=== PATIENT | female | born 1950 | race African-American/Black ===

== ENCOUNTER 2023-06-13 13:52 | Outpatient (CLI) | payer MEDICARE, SELFPAY ==
[2023-06-13 15:09] LABS: Basophils Percent Auto 0.6 % (0.2-1.2); Eosinophils Absolute Auto 0.3 K/mm3 (0-0.3); Eosinophils Percent Auto 4.3 % (0-4.4); Hematocrit 37.6 % (37.0-47.0); Hemoglobin 11.1 g/dL (12.0-15.0); Immature Granulocyte Absolute 0.01 K/mm3 (0.00-0.031); Immature Granulocyte Percent A 0.1 % (0-0.5); Lymphocytes Absolute Auto 2.27 K/mm3 (0.9-3.2); Mean Corpuscular HGB Conc 29.5 g/dl (32-36); Mean Corpuscular Hemoglobin 22.9 pg (26-34); Mean Corpuscular Volume 77.5 fl (80-100); Mean Platelet Volume 10.7 fl (7.4-10.4); Monocytes Absolute Auto 0.5 K/mm3 (0.1-0.6); Monocytes Percent Auto 7.3 % (2.6-8.5); Neutrophils Absolute Auto 3.6 K/mm3 (1.3-6.7); Neutrophils Percent Auto 53.7 % (45.5-73.1); Platelet Count Result 309 k/mm3 (150-375); Red Blood Count 4.85 M/mm3 (4.2-5.4); Red Cell Distribution Width 14.3 % (11.5-14.5); White Blood Count 6.7 K/mm3 (4.5-10.0)
[2023-06-13 15:25] LABS: Appearance Urine Cloudy (Clear); Bacteria Urine Rare /hpf; Bilirubin Urine Negative (Negative); Blood Urine Negative (Negative); Color Urine Yellow (Yellow); Glucose Urine UA Negative (Negative); Ketones Urine Negative (Negative); Leukocyte Esterase Ur 1+ LEU/UL (Negative); Nitrate Urine Negative (Negative); Non Pathogenic Casts 0-2; Protein Urine Negative (Negative); RBC Urine 0-2 /hpf (0-2); Specific Grav Ur 1.029 (1.001-1.035); Squamous Epithelial Cell Urine Occasional /hpf (Few); pH Urine 5.5 (5.0-9.0)
[2023-06-13 15:25] LABS: Albumin Level 4.4 g/dL (3.5-5.1); Anion Gap 6 mmol/L (8-16); Blood Urea Nitrogen 19 mg/dL (7-17); Calcium 10.4 mg/dL (8.4-10.2); Carbon Dioxide 31 mmol/L (22-30); Chloride 102 mmol/L (98-107); Estimated Glomerular Filt Rate > 60; Glucose 100 mg/dL (65-110); Sodium 139 mmol/L (137-145)
[2023-06-13 15:28] LABS: Prothrombin Time 13.4 Seconds (11.1-14.7)
[2023-06-13 15:29] LABS: Partial Thromboplastin Time 29.1 SECONDS (22.3-36.8)
[2023-06-13 15:32] LABS: Add Urine Microscopic? YES
[2023-06-13 15:41] LABS: Platelet Estimate Adequate (Adequate)
[2023-06-13 15:42] LABS: Hypochromasia 1+ (NORMAL); Ovalocytes 2+ (NORMAL); Schistocytes None Seen (NORMAL)
[2023-06-13 15:49] LABS: Urine Cotinine NEGATIVE
== END 2023-06-13 13:53 | disposition home or self-care (01) ==
PROVIDERS: PCP Physician Assistant; Visit Provider Orthopaedic Surgery
DX: Z01.818 Encounter for other preprocedural examination (principal); I10 Essential (primary) hypertension; M17.0 Bilateral primary osteoarthritis of knee
CPT/HCPCS: 80048; 80307; 81001; 82040; 85025; 85610; 85730; 87081; 87086

== ENCOUNTER 2023-06-27 00:25 | Day surgery (SDC) | payer MEDICARE, SELFPAY ==
[2023-06-13 14:08] VITALS: BMI 37.8
--- NOTE | 2023-06-13 14:25 | PC.NURSE ---
Addendum entered by Selam Olmos RN 06/13/23 14:30: MELOXICAM PER DR GUEVARA Original Note: Report to the Outpatient Waiting Room, entrance under the green pavilion located off [facility], at time __0600 on date __06/27/23 . Planned Procedure Time: _0730 . Time changes happen often and if your time is changed the preop area will call you the afternoon before. - You and your visitor will be asked to self-screen and do not enter if you have any COVID symptoms. - A mask is optional within the hospital at this time. Patients may have clear liquids (water, carbonated beverages, clear teas, apple juice) until 3 hours prior to surgery( 4:30 AM ) with a maximum of 20 ounces. - No food from midnight until time of surgery - Infants may have breast milk until 4 hours before surgery, infant formula 6 hours prior to surgery. - Children will be allowed to drink immediately following surgery. If applicable, please bring a bottle or sippy cup to assist with drinking. Juice, water, soda, and popsicles are readily available. For infants on formula, please bring formula the day of surgery. Pacifiers are allowed. Take the following medications with a SIP of water the morning of surgery: NONE DO NOT STOP ANY OF YOUR OTHER PRESCRIPTION MEDICATIONS PRIOR TO SURGERY ?EXCEPT THE FOLLOWING Medications to discontinue per physician ___ALL VITAMINS AND SUPPLEMENTS 3 DAYS PRE OP.LAST DOSE 06/23/23 Please no make-up, nail afghan, hairspray, perfume, deodorant, or body powder the day of surgery. No jewelry (including any body piercings) or valuables the day of surgery, leave them at home. Please take a shower or bath the night before, or the morning of, surgery with an antibacterial soap. Wear comfortable, loose fitting clothing. Children are encouraged to wear pajamas. - Jewelry must be removed prior to entering the operating room. Rings and piercings that are not removed may be cut off. - The hospital will not accept responsibility for valuables. - Please leave all valuables, including medications, at home the day of surgery. If you are going home after surgery, a licensed local combination truck driver must drive you home. - NO public transportation without another adult if you receive anesthesia. - We recommend that an adult stay with you for 24 hours following discharge. - We also recommend that you do not drive, make important decision, drink alcoholic beverages, or take any drugs that were not prescribed by your health care provider for at least 24 hours after your discharge time. Follow any additional instructions given to you from your surgeon. If you or anyone in your household have experienced Covid symptoms in the past week, please notify your surgeon or the nurse liaison at the phone number below for possible testing. VERBAL AND WRITTEN instructions given to ___PATIENT and asked if any additional questions and then verbalized understanding. Patient advised to call surgeon office or pre surgery nurse liaison [phone] if any additional questions.
[2023-06-13 14:47] VITALS: BP 113/72; PULSE 73; RESP 18; TEMP 36.6; O2SAT 97
[2023-06-27] VITALS (16 sets, daily range): BP systolic 123–167; BP diastolic 61–92; PULSE 69–98; RESP 13–18; TEMP 35.9–37.4; O2SAT 93–100
--- NOTE | ~2023-06-27 | XR_ITS ---
EXAMINATION: [id number] DATE: 06/27/2023 10:16 INDICATION: Left knee arthroplasty. Postop. TECHNIQUE: 2 views of left knee were obtained. COMPARISON: Left knee radiographs 12/22/22 FINDINGS: There is a total left knee arthroplasty without patellar resurfacing in near-anatomic align ment. No fracture. There is gas in the knee joint and soft tissues, consistent with recent surgery. A nterior skin noemi are noted. IMPRESSION: 1. Total left knee arthroplasty in near-anatomic alignment. Reviewed, dictated and finalized at location A. MATION DEVELOPER
[2023-06-27] MEDS: ACETAMINOPHEN 500 MG TABLET 1000 MG PO (06:40)
--- NOTE | 2023-06-27 06:45 | WPDANESEPPF ---
Anes - Initial Pre Proc Eval Procedure: Operation Date: 06/27/23 07:30 Proposed Procedures p Left Total Knee Arthroplasty - Joe Hughes MD Date/Time: 06/27/23 06:45 Surgeon: Joe Hughes MD Pre Op Diagnosis: left knee djd Patient Data Age: 73 Gender: F Height: 1.55 m Weight: 90.8 kg Last Vital Signs Temp 36.6 C 06/13/23 14:47 Pulse 73 06/13/23 14:47 Resp 18 06/13/23 14:47 BP 113/72 06/13/23 14:47 Pulse Ox 97 06/13/23 14:47 O2 Del Method Room Air 06/13/23 14:47 Allergies Allergy/AdvReac Type Severity Reaction Status Date / Time No Known Allergies Allergy Verified 06/27/23 06:31 Home Medications Medication Instructions Recorded Confirmed Type biotin 10,000 mcg disintegrating 10,000 mcg PO DAILY 12/26/22 06/13/23 History tablet simvastatin 40 mg tablet 40 mg PO DAILY 12/26/22 06/13/23 History cyanocobalamin (vitamin B-12) 2,500 mcg PO DAILY 06/13/23 06/13/23 History 2,500 mcg tablet ergocalciferol (vitamin D2) 1,250 50,000 unit PO WEEKLY 06/13/23 06/13/23 History mcg (50,000 unit) capsule (Vitamin D2) meloxicam 15 mg tablet 15 mg PO PRN PRN Pain 06/13/23 06/13/23 History telmisartan 80 1 tablet PO DAILY 06/13/23 06/13/23 History mg-hydrochlorothiazide 25 mg tablet chlorhexidine gluconate 4 % 1 applic topical ONCE #237 mL 06/14/23 Rx topical liquid (Hibiclens) Patient hx anesthesia problems: none Family hx anesthesia problems: none Results Review: All pre-operative results and documents have been reviewed as part of the pre-operative evaluation. 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 Informed Consent: The patient's anesthetic plan and its attendant risks and benefits were discussed with the patient/family/POA. Questions were solicited and answers provided to the satisfaction of the patient/family/POA.
[2023-06-27] MEDS: LACTATED RINGERS 1,000 ML 30 ML IV CONT ×2 (07:12→10:01)
[2023-06-27] MEDS: TRANEXAMIC ACID 1,000MG/ISO100 1,000 MG/100 ML BAG 200 MG IVPB (07:12)
--- NOTE | 2023-06-27 07:16 | WPDHPUPDATE1 ---
History and Physical Update Update Date/Time: 06/27/23 07:16 History and Physical has been reviewed, including an updated exam of the patient. There are NO changes in the patient's condition. Risks, benefits, and alternatives have been discussed and questions answered. Patient agrees to proceed with procedure.
--- NOTE | 2023-06-27 07:30 | WPDANESPNB ---
Anes - Peripheral Nerve Block Date/Time: 06/27/23 07:30 I have discussed with the patient/family/POA the placement of a peripheral nerve block for post-operative pain management, including associated risks, benefits, complications, and side effects. Alternative methods of post-operative analgesia were detailed. Questions were solicited and answers provided to the satisfaction of the patient/family/POA. Time-Out: A pre-procedural Time-Out was completed immediately before starting the procedure and confirmed: Patient Identification, Site, Procedure, Patient Position and the Availability of Requisite Equipment. Clinical Indications: Acute post-operative pain management requested by the operative surgeon. Nerve Block Insertion Note Anes-nerve block: adductor canal left Patient position: supine Skin prep: chlorhexidine Needle: 22 gauge, stimulating, insulated echogenic needle. Needle length: 80 mm Technique: ultrasound Injectate: bupivacaine 0.5% with epi 5 mcg/ml (30cc) and dexamethasone (mg) (8) Observations: tolerated well Complications: none Procedure start time:: 721 Procedure end time:: 728
[2023-06-27] MEDS: ceFAZolin 2 GM/D5W 50 ML 2 GM/50 ML BAG IVPB ×2 (07:34→16:10)
[2023-06-27] MEDS: GENTAMICIN BONE CEMENT REFOBACIN 1 EACH TOPICAL (08:44)
[2023-06-27] MEDS: TRANEXAMIC ACID 1,000 MG/10 ML AMPUL 1000 MG IV PUSH (09:13)
--- NOTE | 2023-06-27 10:08 | W.PM.PROC2 ---
Procedure Note - Detailed Date of Procedure 06/27/23 Pre-op Diagnosis left knee djd Post-op Diagnosis Same Procedure Performed L TKA Surgeon Joe Hughes MD Anesthesia General Description of Procedure THE LEFT KNEE WAS PREPPED AND DRAPED IN THE STERILE FASHION. THERE WAS A 10 DEGREE FLEXION CONTRACTURE. A MIDLINE SKIN INCISION WAS MADE. A MEDIAL PARAPATELLAR ARTHROTOMY WAS MADE. THE PATELLA WAS EVERTED. AN INTRAMEDULLARY BEATA WAS PLACED IN THE FEMUR. A DISTAL FEMORAL CUT WAS MADE IN 5 DEGREES OF VALGUS REMOVING APPROXIMATELY 10 MM OF BONE FROM THE DISTAL FEMUR. THE FEMUR WAS SIZED TO 62.5. A 62.5 FEMORAL CUTTING BLOCK WAS PLACED IN 3 DEGREES OF EXTERNAL ROTATION AND IN ALIGNMENT WITH REJI'S LINE AND THE TRANSEPICONDYLAR AXIS. ANTERIOR POSTERIOR AND CHAMFER CUTS WERE MADE. THE CUTS WERE EXCELLENT. NEXT AN INTRAMEDULLARY CUTTING GUIDE WAS PLACED IN THE TIBIA. A TRANS TIBIAL CUT WAS MADE ALONG THE LONG AXIS OF THE TIBIA. APPROXIMATELY 10 MM OF BONE WAS REMOVED FROM THE HIGH SIDE OF THE TIBIA. THE TIBIA WAS THEN PLANED TO A SMOOTH SURFACE. POSTERIOR FEMORAL OSTEOPHYTES WERE REMOVED FROM THE FEMORAL CONDYLES. A 71 TIBIAL TRIAL WAS PLACED IN ALIGNMENT WITH THE 1/3 MEDIAL ASPECT OF THE TIBIAL TUBERCLE. THEN A 62.5 FEMORAL TRIAL COMPONENT WAS PLACED. BOTH HAD EXCELLENT FITS. EVENTUALLY A 10 MM POLYETHYLENE TRIAL COMPONENT WAS PLACED. THE KNEE WAS TAKEN THROUGH A RANGE OF MOTION. THE KNEE CAME OUT TO FULL EXTENSION. THERE WAS NO ABNORMAL TILT TO THE PATELLA. THERE WAS GOOD A/P AND VARUS/VALGUS STABILITY. THERE WAS NO EXCESSIVE ROLL BACK WITH FLEXION. THE TRIAL COMPONENTS WERE REMOVED. THEN A 62.5 FEMORAL COMPONENT AND 71 TIBIAL COMPONENT WITH A 10 POLYETHYLENE COMPONENT WERE CEMENTED INTO PLACE. ONCE THE CEMENT WAS HARD THE KNEE WAS TAKEN THROUGH A ROM AGAIN AND FOUND TO BE STABLE WITH NO PATELLA TILT NO EXCESSIVE ROLL BACK WITH FLEXION AND GOOD STABILITY WITH COMPLETE AND FULL EXTENSION. THE KNEE WAS IRRIGATED WITH STERILE BETADINE AND WATER FOR ABOUT 3 MINUTES. THE BLEEDERS WERE CAUTERIZED. THE ARTHROTOMY WAS REPAIRED WITH NUMBER 1 VICRYL. THE SUB CUTANEOUS LAYER WITH 2-0 VICRYL AND THE SKIN WITH SHRADDHA. THE WOUND WAS WASHED AND A STERILE DRESSING WAS APPLIED. PATIENT WAS EXTUBATED. Estimated Blood Loss -150.0 Pathology None sent Complications No immediate complications Condition Stable Disposition PACU
[2023-06-27] MEDS: fentaNYL CITRATE INJ (*CRX) 100 MCG/2 ML VIAL 25 MCG IV PUSH ×3 (10:36→11:06)
[2023-06-27] MEDS: KETOROLAC 15 MG/ML VIAL (*BKC) IV PUSH (11:03)
--- NOTE | 2023-06-27 11:04 | SUR.PHASEI ---
1100- MD Hughes at bedside. New orders for RN to give 15mg ketorolac IVP once in PACU.
[2023-06-27] MEDS: ONDANSETRON INJ 4 MG/2 ML VIAL IV PUSH ×2 (11:15→14:21)
--- NOTE | 2023-06-27 11:33 | SUR.PHASEI ---
Pt. complaining that dressing is too tight. MD Bell notified. RN can loosen anton wrap dressing per .
--- NOTE | 2023-06-27 11:55 | PC.NURSE ---
This patient, Erma Norris, was admitted to 3 [facility] Surg Room 321-02. Patient/family oriented to hospital policies and general routines including ID bracelet, bed and alarms, visiting hours, pain management, procedures, bathroom and other care routines, personal items, smoking policy, room service/diet, and visiting hours. Report received from Aleta AMOS Information on how to activate the Rapid Response Team has been discussed. Patient/Family are encouraged to report perceived risks to care and to ask questions if they do not understand what they are told or what they should do.
[2023-06-27] MEDS: diazePAM (*CRX) 5 MG TABLET PO (12:15)
[2023-06-27] MEDS: SODIUM CHLORIDE 0.9% IV 1,000 ML 125 ML IV CONT (14:21)
--- NOTE | 2023-06-27 15:09 | PCOTNOTE ---
Attempted to see pt. for occupational therapy evaluation. Pt. remains nauseous and continues to work with PT. Nursing aware. Following.
[2023-06-27] MEDS: oxyCODONE/ACETAMINOPHEN (*CRX) 5-325 MG TABLET 2 TABLET PO (18:03)
[2023-06-27] MEDS: CELECOXIB 200 MG CAPSULE PO (20:48)
[2023-06-27] MEDS: ASPIRIN 325 MG ENTERIC TABLET PO (20:48)
[2023-06-27] MEDS: FAMOTIDINE 20 MG TABLET PO (20:48)
[2023-06-28] MEDS: ceFAZolin 2 GM/D5W 50 ML 2 GM/50 ML BAG IVPB ×2 (00:25→08:49)
[2023-06-28] MEDS: oxyCODONE/ACETAMINOPHEN (*CRX) 5-325 MG TABLET 2 TABLET PO ×2 (00:26→08:58)
[2023-06-28 01:12] VITALS: BP 132/76; PULSE 68; RESP 16; TEMP 35.9; O2SAT 100
[2023-06-28 05:36] VITALS: BP 102/60; PULSE 64; RESP 16; TEMP 36; O2SAT 94
[2023-06-28] MEDS: oxyCODONE/ACETAMINOPHEN (*CRX) 5-325 MG TABLET 1 TABLET PO (05:48)
[2023-06-28 06:35] LABS: Hematocrit 27.7 % (37.0-47.0); Hemoglobin 8.4 g/dL (12.0-15.0); Red Blood Count 3.67 M/mm3 (4.2-5.4); White Blood Count 9.4 K/mm3 (4.5-10.0)
[2023-06-28 06:36] LABS: Basophils Percent Auto 0.2 % (0.2-1.2); Eosinophils Percent Auto 0.1 % (0-4.4); Immature Granulocyte Absolute 0.05 K/mm3 (0.00-0.031); Immature Granulocyte Percent A 0.5 % (0-0.5); Lymphocytes Absolute Auto 1.67 K/mm3 (0.9-3.2); Lymphocytes Percent Auto 17.8 % (18.3-44.2); Mean Corpuscular HGB Conc 30.3 g/dl (32-36); Mean Corpuscular Hemoglobin 22.9 pg (26-34); Mean Corpuscular Volume 75.5 fl (80-100); Mean Platelet Volume 10.4 fl (7.4-10.4); Monocytes Absolute Auto 0.9 K/mm3 (0.1-0.6); Monocytes Percent Auto 9.8 % (2.6-8.5); Neutrophils Absolute Auto 6.7 K/mm3 (1.3-6.7); Neutrophils Percent Auto 71.6 % (45.5-73.1); Platelet Count Result 217 k/mm3 (150-375); Red Cell Distribution Width 13.9 % (11.5-14.5)
[2023-06-28 06:44] LABS: Anion Gap 7 mmol/L (8-16); Blood Urea Nitrogen 17 mg/dL (7-17); Calcium 9.6 mg/dL (8.4-10.2); Carbon Dioxide 27 mmol/L (22-30); Chloride 98 mmol/L (98-107); Estimated CRCL calculation 57 ml/min; Estimated Glomerular Filt Rate > 60; Glucose 123 mg/dL (65-110); Potassium 4.8 mmol/L (3.4-5.0); Sodium 132 mmol/L (137-145)
[2023-06-28 07:06] LABS: Hypochromasia 1+ (NORMAL); Ovalocytes 1+ (NORMAL); Platelet Estimate Adequate (Adequate); Schistocytes Rare (NORMAL)
[2023-06-28 07:08] LABS: Atypical Lymphocytes Present
[2023-06-28] MEDS: hydroCHLOROthiazide 25 MG TABLET PO (08:50)
[2023-06-28] MEDS: SIMVASTATIN 20 MG TABLET 40 MG PO (08:51)
[2023-06-28] MEDS: FAMOTIDINE 20 MG TABLET PO (08:51)
[2023-06-28] MEDS: TELMISARTAN 40 MG TABLET 80 MG PO (08:51)
[2023-06-28] MEDS: CELECOXIB 200 MG CAPSULE PO (08:51)
[2023-06-28] MEDS: SENNA/DOCUSATE SODIUM TABLET 2 TAB PO (08:51)
[2023-06-28] MEDS: polyethylene glycoL 3350 17 GM POWD.PACK PO (08:51)
[2023-06-28] MEDS: ASPIRIN 325 MG ENTERIC TABLET PO (08:51)
[2023-06-28] MEDS: ONDANSETRON INJ 4 MG/2 ML VIAL IV PUSH (08:58)
--- NOTE | 2023-06-28 08:58 | P.PNAN_ITS ---
Anes - Prog Note Post-Op Date/Time: 06/28/23 08:58 Cardiovascular status: normal Respiratory status: normal Airway patency: baseline Mental status: baseline Post-Op hydration status: normal Vital Signs: Last Vital Signs Temp 36.0 C L 06/28/23 05:36 Pulse 64 06/28/23 05:36 Resp 16 06/28/23 05:36 BP 102/60 06/28/23 05:36 Pulse Ox 94 06/28/23 05:36 O2 Del Method Room Air 06/27/23 14:50 O2 Flow Rate 2 06/27/23 11:45 Pain Score (VAS): 08/25 I/O: Intake & Output 06/27/23 06/28/23 06/28/23 23:59 07:59 15:59 Intake Total 410 450 Balance 410 450 Laboratory Tests 06/28/23 06:23 06/28/23 06:24 06/27/23 06/28/23 06/28/23 06:47 06:23 06:24 WBC 9.4 RBC 3.67 L Hgb 8.4 L Hct 27.7 L MCV 75.5 L MCH 22.9 L MCHC 30.3 L RDW 13.9 Plt Count 217 MPV 10.4 Immature Gran % (Auto) 0.5 Neut % (Auto) 71.6 Lymph % (Auto) 17.8 L [place] % (Auto) 9.8 H Eos % (Auto) 0.1 Baso % (Auto) 0.2 Lymph # (Auto) 1.67 [place] # (Auto) 0.9 H Eos # (Auto) 0.0 Baso # (Auto) 0.0 Abs Immat Gran (auto) 0.05 H Absolute Neuts (auto) 6.7 Absolute Nucleated RBC 0.0 Nucleated RBC % 0.0 Atypical Lymphocytes Present Platelet Estimate Adequate Hypochromasia 1+ Ovalocytes 1+ Schistocytes Rare Sodium 132 L Potassium 4.8 Chloride 98 Carbon Dioxide 27 Anion Gap 7 L BUN 17 Creatinine 0.80 Estim Creat Clear Calc 57 Estimated GFR > 60 Glucose 123 H Calcium 9.6 Antibody Screen Negative Post-procedural complaints: nausea (Resolved today) Patient Feedback: Patient satisfied with anesthetic care.
[2023-06-28 09:36] VITALS: BP 100/60; PULSE 64; RESP 16; TEMP 35.8; O2SAT 97
--- NOTE | 2023-06-28 09:51 | PM.PNORT ---
Progress Note: A&P Assessment and Plan (1) S/P total knee arthroplasty: Qualifiers: Laterality: left Qualified Code(s): Z96.652 - Presence of left artificial knee joint Code(s): Z96.659 - Presence of unspecified artificial knee joint Status: Acute Assessment and Plan: POD #1 : Left TKA Continue PT/OT. WBAT. Walker. HIGH FALL RISK. Continue pain control. Ice Knee. Protect skin. DVT prophylaxis with Aspirin. SCDs. Incentive Spirometry Use reviewed. Monitor Dressing. Change prior to discharge. Bowel Regimen. Dispo: Home with Home Health pending progress with PT/OT (2) HTN (hypertension): Code(s): I10 - Essential (primary) hypertension Status: Acute (3) Vision abnormalities: Code(s): H53.9 - Unspecified visual disturbance Status: Acute Plan Reviewed history, exam, radiographs and current labs with attending MD and covering surgeon, Dr. Hughes, who agrees with current plan as indicated above. No further recommendations from Dr. Hughes at this time. Subjective Subjective Date/Time Seen: 06/28/23 09:51 Post Op day: 1 Interval history: POD #1: Left TKA Patient with complaints of a headache this morning. Recently received analgesics. Working with OT. Awaiting PT. Pain, left knee, well controlled. Hopeful for discharge pending resolution of headache and progress with PT/OT. Review of Systems Review of Systems: All systems reviewed & are unremarkable except as noted in HPI and below Constitutional: Constitutional: Denies fever(s) Cardiovascular: Cardiovascular: Denies chest pain, Denies diaphoresis, Denies palpitations and Denies dyspnea Respiratory: Respiratory: Denies dyspnea Gastrointestinal: Gastrointestinal: Denies abdominal pain, Denies constipation, Denies nausea and Denies vomiting Genitourinary: Genitourinary: Reports nocturia and Denies dysuria Musculoskeletal: Musculoskeletal: Reports arthralgias (Left Knee ), Reports joint swelling (Left Knee ) and Reports limited range of motion (ROM limited due to recent surgical intervention LEFT Knee ) Neurologic: Denies headache(s) Endocrine: Endocrine: Denies palpitations Exam Const: General: comfortable and no acute distress Resp: Effort & Inspection: normal respiratory effort Cardio: Rate: regular rate Rhythm: regular rhythm GI: GI Palp: Yes Soft to palpation, No Tenderness to palpation present (GI) and No Guarding due to palpation present (GI) Skin: General skin exam: wounds noted (see extremity assessment ) Wounds: wounds noted (see extremity assessment ) Neuro: Cognition (Neuro): normal cognition Other: NV intact aside from block. Moves toes. Sensation intact to light touch. +ankle dorsiflexion/plantarflexion. Extrem: Left lower extremity: normal to inspection, normal capillary refill, knee Details: tenderness (diffuse ) Location: of the patella, swelling (moderate consistent to recent surgery ), abnormal ROM (limited due to recent surgery ) Details: pain with active ROM and pain with passive ROM and ecchymosis (as expected with recent surgery. NO hematoma. ), lower leg (Negative Kyrie's Sign ), ankle (+ankle dorsiflexion/plantarflexion ) Details: normal to inspection, no edema and normal ROM; no tenderness and no swelling and foot Details: normal capillary refill, toes with normal ROM, vascular exam Details: dorsalis pedis pulse present and motor-sensory exam light-touch normal; no tenderness Other: Incision left TKA dressing c/d/i. No hematoma. No signs of infection. No wound dehiscence. Psych: Mental Status: mental status grossly normal Objective Data Vital Signs Vital Signs: Vital Signs - 24 hr 06/27/23 10:01 06/27/23 10:15 06/27/23 10:30 Temperature 36.1 C L Pulse Rate 92 98 92 Respiratory Rate 16 14 16 Blood Pressure 128/61 137/80 137/68 Pulse Oximetry 96 99 93 Oxygen Delivery Simple Face Mask Simple Face Mask Room Air Oxygen Flow Rate 10 06/27
[2023-06-28 13:36] VITALS: BP 98/50; PULSE 68; RESP 18; TEMP 36.4; O2SAT 95
--- NOTE | 2023-06-28 14:09 | PM.DS ---
DS: Admitting Diagnosis Discharge Date 06/28/23 Admitting Diagnosis Left Knee DJD DS: Discharge Diagnosis Discharge Diagnosis (1) S/P total knee arthroplasty: Qualifiers: Laterality: left Qualified Code(s): Z96.652 - Presence of left artificial knee joint Code(s): Z96.659 - Presence of unspecified artificial knee joint Status: Acute Assessment and Plan: POD #1 : Left TKA Continue PT/OT. WBAT. Walker. HIGH FALL RISK. Continue pain control. Ice Knee. Protect skin. DVT prophylaxis with Aspirin. SCDs. Incentive Spirometry Use reviewed. Monitor Dressing. Change prior to discharge. Bowel Regimen. Dispo: Home with Home Health pending progress with PT/OT (2) HTN (hypertension): Code(s): I10 - Essential (primary) hypertension Status: Acute (3) Vision abnormalities: Code(s): H53.9 - Unspecified visual disturbance Status: Acute Plan Reviewed history, exam, radiographs and current labs with attending MD and covering surgeon, Dr. Hughes, who agrees with current plan as indicated above. No further recommendations from Dr. Hughes at this time. DS: Summary Hospital Course Reason for hospitalization: Left TKA Hospital Course: 73 year old male admitted s/p Left TKA for postoperative medical management, pain control and mobilization with PT/OT. Patient progressed well with PT/OT. Pain and vitals remained stable throughout. The patient has been cleared to be discharged home with home health at this time. All discharge care instructions reviewed at depth. New medications reviewed. Follow up planned for 3 weeks in the outpatient orthopedic clinic with Dr. Hughes. Dr. Hughes in agreement with safe discharge at this time. Status at Discharge Functional status at discharge: uses cane/walker Overall status at discharge: patient is progressing back to baseline Time Spent with Patient Time attestation: Total time spent providing and/or coordinating discharge services: Exam Const: General: comfortable and no acute distress Resp: Effort & Inspection: normal respiratory effort Cardio: Rate: regular rate Rhythm: regular rhythm Skin: General skin exam: wounds noted (see extremity assessment ) Wounds: wounds noted (see extremity assessment ) Neuro: Cognition (Neuro): normal cognition Other: NV intact aside from block. Moves toes. Sensation intact to light touch. +ankle dorsiflexion/plantarflexion. Extrem: Left lower extremity: normal to inspection, normal capillary refill, knee Details: tenderness (diffuse ) Location: of the patella, swelling (moderate consistent to recent surgery ), abnormal ROM (limited due to recent surgery ) Details: pain with active ROM and pain with passive ROM and ecchymosis (as expected with recent surgery. NO hematoma. ), lower leg (Negative Kyrie's Sign ), ankle (+ankle dorsiflexion/plantarflexion ) Details: normal to inspection, no edema and normal ROM; no tenderness and no swelling and foot Details: normal capillary refill, toes with normal ROM, vascular exam Details: dorsalis pedis pulse present and motor-sensory exam light-touch normal; no tenderness Other: Incision left TKA dressing c/d/i. No hematoma. No signs of infection. No wound dehiscence. Psych: Mental Status: mental status grossly normal DS: Data Data Completed and Pending Labs on day of discharge: Labs from last 24 hours 06/28/23 06/28/23 06:24 06:23 WBC 9.4 RBC 3.67 L Hgb 8.4 L Hct 27.7 L MCV 75.5 L MCH 22.9 L MCHC 30.3 L RDW 13.9 Plt Count 217 MPV 10.4 Immature Gran % (Auto) 0.5 Neut % (Auto) 71.6 Lymph % (Auto) 17.8 L [place] % (Auto) 9.8 H Eos % (Auto) 0.1 Baso % (Auto) 0.2 Lymph # (Auto) 1.67 [place] # (Auto) 0.9 H Eos # (Auto) 0.0 Baso # (Auto) 0.0 Abs Immat Gran (auto) 0.05 H Absolute Neuts (auto) 6.7 Absolute Nucleated RBC 0.0 Nucleated RBC % 0.0 Atypical Lymphocytes Present Platelet Estimate
== END 2023-06-28 16:00 | disposition home health service (06) ==
LOC: ANHSURGERY 06:09 → ANH3MEDSUR 11:53
PROVIDERS: PCP Physician Assistant; Visit Provider Orthopaedic Surgery
PROC: (CPT 27447; principal; 2023-06-27 07:30)
DX: M17.12 Unilateral primary osteoarthritis, left knee (principal); I10 Essential (primary) hypertension; H53.9 Unspecified visual disturbance; E66.9 Obesity, unspecified; Z68.37 Body mass index [BMI] 37.0-37.9, adult; G89.18 Other acute postprocedural pain; Z90.49 Acquired absence of other specified parts of digestive tract; Z82.49 Family history of ischemic heart disease and other diseases of the circulatory system
CPT/HCPCS: 64447; 27447; 36415; 73560; 80048; 80307; 81001; 82040; 85025; 85610; 85730; 86850; 86900; 86901; 87081; 87086; 97110; 97116; 97161; 97165; 97530; 97535; A9270; C1713; C1776; J0171; J0690; J1100; J1170; J1885; J2250; J2270; J2371; J2405; J2704; J2795; J3010; J3370; J7030; J7120

== ENCOUNTER 2024-04-17 11:20 | Outpatient (CLI) | payer MEDICARE, SELFPAY ==
[2024-04-17 12:16] LABS: Add Urine Microscopic? YES; Appearance Urine Cloudy (Clear); Bacteria Urine 3+ /hpf; Bilirubin Urine Negative (Negative); Blood Urine Negative (Negative); Color Urine Yellow (Yellow); Glucose Urine UA Negative (Negative); Ketones Urine Negative (Negative); Leukocyte Esterase Ur 3+ LEU/UL (Negative); Nitrate Urine Negative (Negative); Non Pathogenic Casts 0-2; Protein Urine Negative (Negative); RBC Urine 0-2 /hpf (0-2); Squamous Epithelial Cell Urine Moderate /hpf (Few); pH Urine 6.5 (5.0-9.0)
[2024-04-17 12:36] LABS: Anion Gap 10 mmol/L (4-12); Blood Urea Nitrogen 13 mg/dL (7-17); Calcium 10.8 mg/dL (8.4-10.2); Carbon Dioxide 31 mmol/L (22-30); Chloride 97 mmol/L (98-107); Estimated Glomerular Filt Rate > 60; Glucose 90 mg/dL (65-110); Potassium 3.5 mmol/L (3.4-5.0); Sodium 138 mmol/L (137-145)
[2024-04-17 12:38] LABS: Basophils Percent Auto 0.4 % (0.2-1.2); Eosinophils Absolute Auto 0.1 K/mm3 (0-0.3); Eosinophils Percent Auto 3.1 % (0-4.4); Hematocrit 39.9 % (37.0-47.0); Hemoglobin 12.5 g/dL (12.0-15.0); Immature Granulocyte Absolute 0.01 K/mm3 (0.00-0.031); Immature Granulocyte Percent A 0.2 % (0-0.5); Lymphocytes Absolute Auto 1.53 K/mm3 (0.9-3.2); Lymphocytes Percent Auto 33.6 % (18.3-44.2); Mean Corpuscular HGB Conc 31.3 g/dl (32-36); Mean Corpuscular Hemoglobin 23.5 pg (26-34); Mean Corpuscular Volume 75.1 fl (80-100); Mean Platelet Volume 10.9 fl (7.4-10.4); Monocytes Absolute Auto 0.4 K/mm3 (0.1-0.6); Neutrophils Absolute Auto 2.5 K/mm3 (1.3-6.7); Neutrophils Percent Auto 53.7 % (45.5-73.1); Platelet Count Result 302 k/mm3 (150-375); Red Blood Count 5.31 M/mm3 (4.2-5.4); Red Cell Distribution Width 14.5 % (11.5-14.5); White Blood Count 4.6 K/mm3 (4.5-10.0)
== END 2024-04-17 11:21 | disposition home or self-care (01) ==
PROVIDERS: PCP Emergency Medicine; Visit Provider Orthopaedic Surgery
DX: R53.83 Other fatigue (principal); I10 Essential (primary) hypertension
CPT/HCPCS: 36415; 80048; 81001; 85025; 87086

== ENCOUNTER 2024-05-13 12:20 | Outpatient (CLI) | payer MEDICARE, SELFPAY ==
--- NOTE | ~2024-05-13 | MM_ITS ---
EXAMINATION: MM screening gustavo BI w katy HISTORY: Screening TECHNIQUE: Craniocaudal and mediolateral oblique 3-D tomosynthesis images were obtained and synthetic 2-D images were generated. CAD analysis was submitted and interpreted. COMPARISON: Comparison to multiple prior studies sequentially, with oldest reviewed study dated 12/2018. BREAST PARENCHYMAL COMPOSITION: Not dense: There are scattered areas of fibroglandular density. FINDINGS: There is no evidence of suspicious mass, calcification, or architectural distortion to sugg est malignancy in either breast. There has been no suspicious interval change. IMPRESSION: 1. No mammographic evidence of malignancy. 2. Recommend routine screening mammography in one year. BI-RADS Category 1: Negative Reviewed, dictated and finalized at location B. SPRAYER
== END 2024-05-13 12:21 | disposition home or self-care (01) ==
LOC: MICIMG 12:21
PROVIDERS: PCP Emergency Medicine; Visit Provider Emergency Medicine
DX: Z12.31 Encounter for screening mammogram for malignant neoplasm of breast (principal)
CPT/HCPCS: 77063; 77067

== ENCOUNTER 2024-06-04 11:33 | Outpatient (CLI) | payer MEDICARE, SELFPAY ==
--- NOTE | ~2024-06-04 | XR_ITS ---
XR wrist RT min 3V Ordering provider: Socorro Arnold, History: . PAIN/swelling RT WRIST x 3 wks w/o injury . Comparison: None. FINDINGS: BONES: No acute fracture or dislocation. No definite scaphoid fracture. JOINT SPACES: Osteoarthritic changes of the first carpometacarpal joint. SOFT TISSUES: Normal. IMPRESSION: No acute osseous abnormality right wrist. Reviewed, dictated and finalized at location A. TECHNICAL MGR
== END 2024-06-04 11:34 | disposition home or self-care (01) ==
PROVIDERS: PCP Emergency Medicine; Visit Provider Emergency Medicine
DX: M25.531 Pain in right wrist (principal); M25.431 Effusion, right wrist
CPT/HCPCS: 73110

== ENCOUNTER 2024-06-24 11:55 | Outpatient (CLI) | payer MEDICARE, SELFPAY ==
--- NOTE | 2024-06-24 13:26 | ECG_ITS ---
Test Date: 2024-06-24 13:33:51 Measurements Intervals [place] Rate: 63 P: 31 FL: 197 QRS: 6 QRSD: 89 T: 29 QT: 394 QTc: 404 Interpretive Statements SINUS RHYTHM No previous ECG available for comparison Electronically Signed On 06-25-2024 17:39:22 MANAGER HOTEL by Luis Fernando Gaviria M.D.
[2024-06-24 14:15] LABS: Basophils Percent Auto 0.6 % (0.2-1.2); Eosinophils Absolute Auto 0.2 K/mm3 (0-0.3); Eosinophils Percent Auto 2.4 % (0-4.4); Hematocrit 36.5 % (37.0-47.0); Hemoglobin 11.2 g/dL (12.0-15.0); Immature Granulocyte Absolute 0.03 K/mm3 (0.00-0.031); Immature Granulocyte Percent A 0.5 % (0-0.5); Lymphocytes Absolute Auto 1.64 K/mm3 (0.9-3.2); Lymphocytes Percent Auto 25.8 % (18.3-44.2); Mean Corpuscular HGB Conc 30.7 g/dl (32-36); Mean Corpuscular Hemoglobin 23.1 pg (26-34); Mean Corpuscular Volume 75.4 fl (80-100); Mean Platelet Volume 10.6 fl (7.4-10.4); Monocytes Absolute Auto 0.5 K/mm3 (0.1-0.6); Monocytes Percent Auto 7.7 % (2.6-8.5); Platelet Count Result 315 k/mm3 (150-375); Red Blood Count 4.84 M/mm3 (4.2-5.4); Red Cell Distribution Width 14.4 % (11.5-14.5); White Blood Count 6.4 K/mm3 (4.5-10.0)
[2024-06-24 14:27] LABS: Prothrombin Time 13.7 Seconds (11.1-14.7)
[2024-06-24 14:28] LABS: Partial Thromboplastin Time 27.8 Seconds (22.3-36.8)
[2024-06-24 14:37] LABS: Urine Cotinine NEGATIVE
[2024-06-24 14:38] LABS: Add Urine Microscopic? YES; Appearance Urine Cloudy (Clear); Bacteria Urine 1+ /hpf; Bilirubin Urine Negative (Negative); Blood Urine Negative (Negative); Color Urine Yellow (Yellow); Glucose Urine UA Negative (Negative); Ketones Urine Negative (Negative); Leukocyte Esterase Ur 2+ LEU/UL (Negative); Need Manual Microscopic Reviewed; Nitrate Urine Negative (Negative); Non Pathogenic Casts 0-2; Protein Urine Negative (Negative); RBC Urine 0-2 /hpf (0-2); Specific Grav Ur 1.021 (1.001-1.035); Squamous Epithelial Cell Urine Few /hpf (Few); WBC Urine 0-5 /hpf (0-3)
[2024-06-24 14:41] LABS: Albumin Level 4.2 g/dL (3.5-5.1); Anion Gap 4 mmol/L (4-12); Blood Urea Nitrogen 14 mg/dL (7-17); Calcium 9.9 mg/dL (8.4-10.2); Carbon Dioxide 32 mmol/L (22-30); Chloride 102 mmol/L (98-107); Estimated Glomerular Filt Rate > 60; Glucose 98 mg/dL (65-110); Potassium 3.9 mmol/L (3.4-5.0); Sodium 138 mmol/L (137-145)
[2024-06-24 15:17] LABS: MRSA (PCR) NOT DETECTED (NOT DETECTE)
== END 2024-06-24 11:56 | disposition home or self-care (01) ==
PROVIDERS: PCP Emergency Medicine; Visit Provider Orthopaedic Surgery
DX: Z01.818 Encounter for other preprocedural examination (principal); M17.11 Unilateral primary osteoarthritis, right knee; Z79.899 Other long term (current) drug therapy
CPT/HCPCS: 80048; 80307; 81001; 82040; 83036; 85025; 85610; 85730; 87086; 87641; 93005

== ENCOUNTER 2024-07-08 00:10 | Day surgery (SDC) | payer MEDICARE, SELFPAY ==
[2024-06-24 12:35] VITALS: BP 123/70; PULSE 74; RESP 16; TEMP 37; O2SAT 98; BMI 39.7
--- NOTE | 2024-06-24 12:57 | PC.NURSE ---
Report to the Outpatient Waiting Room, entrance under the green pavilion located off [facility], at time ___6:00AM____ on date ___07/08/24____. Planned Procedure Time: ___7:30AM .? Time changes happen often and if your time is changed the preop area will call you the afternoon before. - You and your visitor will be asked to self-screen and do not enter if you have any COVID symptoms. Please call surgeon if you need to reschedule. - A mask is optional within the hospital at this time. Patients may have clear liquids (water, carbonated beverages, clear teas, apple juice) until 3 hours prior to surgery (4:30AM) with a maximum of 20 ounces. - No food from midnight until time of surgery and no smoking. This includes no chewing gum, candy or mints. Take only the following medications with a SIP of water on the morning of surgery: NONE DO NOT STOP ANY OF YOUR OTHER PRESCRIPTION MEDICATIONS PRIOR TO SURGERY EXCEPT THE FOLLOWING Medications to discontinue per physician HOLD ALL VITAMINS/SUPPLEMENTS 7 DAYS PRE-OP PER DR GUEVARA Date to take last dose 06/30/24 Please no make-up, nail jordanian, hairspray, perfume, deodorant, or body powder the day of surgery.? No jewelry (including any body piercings) or valuables the day of surgery, leave them at home.? Please take a shower or bath the night before, or the morning of, surgery with an antibacterial soap.? Wear comfortable, loose fitting clothing.? Children are encouraged to wear pajamas. - Jewelry must be removed prior to entering the operating room.? Rings and piercings that are not removed may be cut off. - The hospital will not accept responsibility for valuables.? - Please leave all valuables, including medications, at home the day of surgery. If you are going home after surgery, a licensed sweeper driver must drive you home.? - NO public transportation without another adult if you receive anesthesia. - We recommend that an adult stay with you for 24 hours following discharge. - We also recommend that you do not drive, make important decision, drink alcoholic beverages, or take any drugs that were not prescribed by your health care provider for at least 24 hours after your discharge time. Follow any additional instructions given to you from your surgeon. HIBICLENS SHOWER PER DR GUEVARA. Telephone instructions given to ____PATIENT and asked if any additional questions and then verbalized understanding. Patient advised to call surgeon office or pre surgery nurse liaison [phone] if any additional questions.
[2024-07-08] VITALS (18 sets, daily range): BP systolic 98–138; BP diastolic 52–81; PULSE 60–74; RESP 12–20; TEMP 36.1–36.4; O2SAT 92–100; BMI 38.7
--- NOTE | ~2024-07-08 | XR_ITS ---
EXAMINATION: [id number] DATE: 07/08/2024 10:21 INDICATION: Postoperative evaluation following right total knee arthroplasty. TECHNIQUE: Anteroposterior and lateral views of the right knee were obtained. COMPARISON: None. FINDINGS: Right total knee arthroplasty without patellar resurfacing appears well seated and in near anatomic a lignment. No fractures identified. Moderate-sized enthesophyte at the proximal pole of the patella. Expected postoperative subcutaneous, intramedullary and intra-articular gas. IMPRESSION: 1. Right total knee arthroplasty, negative for postoperative purposes. Reviewed, dictated and finalized at location A. TIVE PRODUCER
[2024-07-08] MEDS: LACTATED RINGERS 1,000 ML 30 ML IV CONT ×2 (06:25→10:04)
[2024-07-08] MEDS: ACETAMINOPHEN 500 MG TABLET 1000 MG PO (06:38)
--- NOTE | 2024-07-08 07:07 | P.PNAN_ITS ---
Anes - Initial Pre Proc Eval Procedure: Operation Date: 07/08/24 07:30 Proposed Procedures p Right Total Knee Arthroplasty - Joe Hughes MD Date/Time: 07/08/24 07:07 Surgeon: Joe Hughes MD Pre Op Diagnosis: Right Knee DJD Patient Data Age: 74 Gender: F Height: 1.52 m Weight: 90 kg Last Vital Signs Temp 97.3 F L 07/08/24 05:55 Pulse 63 07/08/24 05:55 Resp 18 07/08/24 05:55 BP 115/61 07/08/24 05:55 Pulse Ox 98 07/08/24 05:55 O2 Del Method Room Air 07/08/24 05:55 Allergies Allergy/AdvReac Type Severity Reaction Status Date / Time No Known Allergies Allergy Verified 07/08/24 06:07 Home Medications ?Medication ?Instructions ?Recorded ?Confirmed ?Type biotin 10,000 mcg disintegrating 10,000 mcg PO DAILY 12/26/22 07/08/24 History tablet simvastatin 40 mg tablet 40 mg PO DAILY 12/26/22 07/08/24 History cyanocobalamin (vitamin B-12) 2,500 mcg PO DAILY 06/13/23 07/08/24 History 2,500 mcg tablet ergocalciferol (vitamin D2) 1,250 50,000 unit PO WEEKLY 06/13/23 07/08/24 History mcg (50,000 unit) capsule (Vitamin D2) telmisartan 80 1 tablet PO DAILY 06/13/23 07/08/24 History mg-hydrochlorothiazide 25 mg tablet acetaminophen 500 mg tablet 1,000 mg PO Q6H PRN pain 06/24/24 06/24/24 History (Acetaminophen Extra Strength) chlorhexidine gluconate 4 % 1 applic topical DAILY #237 mL 06/27/24 Rx topical liquid (Hibiclens) Laboratory Tests 07/08/24 06:32 Blood Type Pending Antibody Screen Pending Patient hx anesthesia problems: none Family hx anesthesia problems: none Results Review: All pre-operative results and documents have been reviewed as part of the pre- operative evaluation. 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, right Surgical History Surgical History S/P total knee arthroplasty LT TKA 06/27/2023 History of laparoscopic cholecystectomy Family History Family History Unknown Heart disease Social History Social History Smoking status: Never smoker Additional smoking assessment comments: DENIES ANY FORM OF TOBACCO USE Alcohol intake: never Substance use: never Do You Feel Safe in your Home?: Yes Lack of Transportation: No Lack of Food: Never True Current Housing: I Have Housing Concerned About Future Housing: No Difficulty Paying Gas/Electric Bills: No Difficulty Paying for Meds: No Currently Unemployed: No Education: High School Diploma/GED Difficulty w/ Childcare or Family Care: No Living arrangements: alone Occupation/Education: occupation 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 ) Neurological: alert and oriented Last oral intake: >/= 8 hours ASA classification: III Emergent: no Anesthetic plan: proceed Anesthesia type and monitoring: general LMA and standard monitoring Results Review: All pre-operative results and documents have been reviewed as part of the pre- operative evaluation. HTN, hyperlipidemia, BMI 39. EKG w NSR. Informed Consent: The patient's anesthetic plan and its attendant risks and benefits were discussed with the patient/family/POA. Questions were solicited and answers provided to the satisfaction of the patient/family/POA.
[2024-07-08] MEDS: TRANEXAMIC ACID 1,000MG/ISO100 1,000 MG/100 ML BAG 200 MG IVPB (07:08)
--- NOTE | 2024-07-08 07:28 | WPDHPUPDATE1 ---
History and Physical Update Update Date/Time: 07/08/24 07:28 History and Physical has been reviewed, including an updated exam of the patient. There are NO changes in the patient's condition. Risks, benefits, and alternatives have been discussed and questions answered. Patient agrees to proceed with procedure.
--- NOTE | 2024-07-08 07:40 | WPDANESPNB ---
Anes - Peripheral Nerve Block Date/Time: 07/08/24 07:40 I have discussed with the patient/family/POA the placement of a peripheral nerve block for post-operative pain management, including associated risks, benefits, complications, and side effects. Alternative methods of post-operative analgesia were detailed. Questions were solicited and answers provided to the satisfaction of the patient/family/POA. Time-Out: A pre-procedural Time-Out was completed immediately before starting the procedure and confirmed: Patient Identification, Site, Procedure, Patient Position and the Availability of Requisite Equipment. Clinical Indications: Acute post-operative pain management requested by the operative surgeon. Nerve Block Insertion Note Anes-nerve block: adductor canal right Patient position: supine Skin prep: chlorhexidine Needle: 22 gauge, stimulating, insulated echogenic needle. Needle length: 80 mm Technique: ultrasound Injectate: other (Bupiv 0.5% 15 mls. ) Observations: tolerated well Complications: none Procedure start time:: 730 Procedure end time::
[2024-07-08] MEDS: ceFAZolin 2 GM/D5W 50 ML 2 GM/50 ML BAG IVPB ×3 (07:57→23:39)
[2024-07-08] MEDS: GENTAMICIN BONE CEMENT REFOBACIN 1 EACH TOPICAL (09:08)
[2024-07-08] MEDS: SODIUM CHLORIDE 0.9% IV 37.7 ML, MORPHINE SULFATE INJ (*CRX) 2 MG, ROPivacaine HCL 1% 2... INFILTRATE (09:08)
[2024-07-08] MEDS: TRANEXAMIC ACID 1,000 MG/10 ML AMPUL 1000 MG IV PUSH (09:35)
--- NOTE | 2024-07-08 10:05 | W.PM.PROC2 ---
Procedure Note - Detailed Date of Procedure 07/08/24 Pre-op Diagnosis Right Knee DJD Post-op Diagnosis Same Procedure Performed R TKA Surgeon Joe Hughes MD Anesthesia General Description of Procedure THE RIGHT KNEE WAS PREPPED AND DRAPED IN THE STERILE FASHION. THERE WAS A 10 DEGREE FLEXION CONTRACTURE. A MIDLINE SKIN INCISION WAS MADE. A MEDIAL PARAPATELLAR ARTHROTOMY WAS MADE. THE PATELLA WAS EVERTED. THERE WAS TRICOMPARTMENT DJD. THERE WAS MINIMAL PATELLA DJD. AN INTRAMEDULLARY BEATA WAS PLACED IN THE FEMUR. A DISTAL FEMORAL CUT WAS MADE IN 5 DEGREES OF VALGUS REMOVING APPROXIMATELY 9 MM OF BONE FROM THE DISTAL FEMUR. THE FEMUR WAS SIZED TO 62.5. A 62.5 FEMORAL CUTTING BLOCK WAS PLACED IN 3 DEGREES OF EXTERNAL ROTATION AND IN ALIGNMENT WITH REJI'S LINE AND THE TRANSEPICONDYLAR AXIS. ANTERIOR POSTERIOR AND CHAMFER CUTS WERE MADE. THE CUTS WERE EXCELLENT. NEXT AN INTRAMEDULLARY CUTTING GUIDE WAS PLACED IN THE TIBIA. A TRANS TIBIAL CUT WAS MADE ALONG THE LONG AXIS OF THE TIBIA. APPROXIMATELY 10 MM OF BONE WAS REMOVED FROM THE HIGH SIDE OF THE TIBIA. THE TIBIA WAS THEN PLANED TO A SMOOTH SURFACE. POSTERIOR FEMORAL OSTEOPHYTES WERE REMOVED FROM THE FEMORAL CONDYLES. A 71 TIBIAL TRIAL WAS PLACED IN ALIGNMENT WITH THE 1/3 MEDIAL ASPECT OF THE TIBIAL TUBERCLE. THEN A 62.5 FEMORAL TRIAL COMPONENT WAS PLACED. BOTH HAD EXCELLENT FITS. EVENTUALLY A 12 POLYETHYLENE TRIAL COMPONENT WAS PLACED. THE KNEE WAS TAKEN THROUGH A RANGE OF MOTION. THE KNEE CAME OUT TO FULL EXTENSION. THERE WAS NO ABNORMAL TILT TO THE PATELLA. THERE WAS GOOD A/P AND VARUS/VALGUS STABILITY. THERE WAS NO EXCESSIVE ROLL BACK WITH FLEXION. THE TRIAL COMPONENTS WERE REMOVED. THEN A 62.5 FEMORAL COMPONENT AND 71 TIBIAL COMPONENT WITH A 12 POLYETHYLENE COMPONENT WERE CEMENTED INTO PLACE. ONCE THE CEMENT WAS HARD THE KNEE WAS TAKEN THROUGH A ROM AGAIN AND FOUND TO BE STABLE WITH NO PATELLA TILT NO EXCESSIVE ROLL BACK WITH FLEXION AND GOOD STABILITY WITH COMPLETE AND FULL EXTENSION. THE KNEE WAS IRRIGATED WITH STERILE BETADINE AND WATER FOR ABOUT 3 MINUTES. THE BLEEDERS WERE CAUTERIZED. THE ARTHROTOMY WAS REPAIRED WITH NUMBER 1 VICRYL. THE SUB CUTANEOUS LAYER WITH 2-0 VICRYL AND THE SKIN WITH SHRADDHA. THE WOUND WAS WASHED AND A STERILE DRESSING WAS APPLIED. PATIENT WAS EXTUBATED. Estimated Blood Loss -150.0 Pathology None sent Complications No immediate complications Condition Stable Disposition PACU
[2024-07-08] MEDS: fentaNYL CITRATE INJ (*CRX) 100 MCG/2 ML VIAL 25 MCG IV PUSH ×4 (10:36→11:26)
--- NOTE | 2024-07-08 11:38 | ADMGEN ---
This patient, Erma Norris, was admitted to [facility] Surg Room 325-01. Patient/family oriented to hospital policies and general routines including ID bracelet, bed and alarms, visiting hours, pain management, procedures, bathroom and other care routines, personal items, smoking policy, room service/diet, and visiting hours. Information on how to activate the Rapid Response Team has been discussed. Patient/Family are encouraged to report perceived risks to care and to ask questions if they do not understand what they are told or what they should do.
[2024-07-08] MEDS: oxyCODONE/ACETAMINOPHEN (*CRX) 10-325 MG TABLET 1 TAB PO (11:49)
[2024-07-08] MEDS: KETOROLAC 15 MG/ML VIAL (*BKC) IV PUSH ×3 (11:50→23:38)
[2024-07-08] MEDS: IBUPROFEN IV 800 MG/200 ML 800 MG/200 ML BAG 400 MG IVPB (12:26)
[2024-07-08] MEDS: ONDANSETRON INJ 4 MG/2 ML VIAL IV PUSH ×2 (14:27→20:03)
[2024-07-08] MEDS: SODIUM CHLORIDE 0.9% IV 1,000 ML 125 ML IV CONT (15:00)
[2024-07-08] MEDS: hydroCHLOROthiazide 25 MG TABLET PO (15:54)
[2024-07-08] MEDS: TELMISARTAN 40 MG TABLET 80 MG PO (15:54)
[2024-07-08] MEDS: SIMVASTATIN 20 MG TABLET 40 MG PO (15:55)
[2024-07-08] MEDS: ASPIRIN 325 MG ENTERIC TABLET PO (23:39)
[2024-07-09] MEDS: SODIUM CHLORIDE 0.9% IV 1,000 ML 30 ML (01:18)
[2024-07-09 03:19] VITALS: BP 100/58; PULSE 66; RESP 16; TEMP 36.3; O2SAT 98
[2024-07-09] MEDS: oxyCODONE/ACETAMINOPHEN (*CRX) 5-325 MG TABLET 1 TABLET PO (04:31)
[2024-07-09 06:32] LABS: Basophils Percent Auto 0.2 % (0.2-1.2); Eosinophils Percent Auto 0.2 % (0-4.4); Hematocrit 30.2 % (37.0-47.0); Hemoglobin 9.3 g/dL (12.0-15.0); Immature Granulocyte Absolute 0.03 K/mm3 (0.00-0.031); Immature Granulocyte Percent A 0.4 % (0-0.5); Lymphocytes Absolute Auto 1.28 K/mm3 (0.9-3.2); Lymphocytes Percent Auto 15.1 % (18.3-44.2); Mean Corpuscular HGB Conc 30.8 g/dl (32-36); Mean Corpuscular Hemoglobin 23.6 pg (26-34); Mean Corpuscular Volume 76.6 fl (80-100); Mean Platelet Volume 10.7 fl (7.4-10.4); Monocytes Absolute Auto 0.7 K/mm3 (0.1-0.6); Monocytes Percent Auto 8.5 % (2.6-8.5); Neutrophils Absolute Auto 6.4 K/mm3 (1.3-6.7); Neutrophils Percent Auto 75.6 % (45.5-73.1); Platelet Count Result 219 k/mm3 (150-375); Red Blood Count 3.94 M/mm3 (4.2-5.4); Red Cell Distribution Width 14.2 % (11.5-14.5); White Blood Count 8.5 K/mm3 (4.5-10.0)
[2024-07-09 06:42] LABS: Anion Gap 8 mmol/L (4-12); Blood Urea Nitrogen 12 mg/dL (7-17); Calcium 9.2 mg/dL (8.4-10.2); Carbon Dioxide 27 mmol/L (22-30); Chloride 101 mmol/L (98-107); Estimated CRCL calculation 78 ml/min; Estimated Glomerular Filt Rate > 60; Glucose 107 mg/dL (65-110); Potassium 4.1 mmol/L (3.4-5.0); Sodium 136 mmol/L (137-145)
[2024-07-09] MEDS: ceFAZolin 2 GM/D5W 50 ML 2 GM/50 ML BAG IVPB (07:45)
[2024-07-09 10:09] VITALS: BP 97/50
[2024-07-09] MEDS: SIMVASTATIN 20 MG TABLET 40 MG PO (10:11)
[2024-07-09] MEDS: oxyCODONE/ACETAMINOPHEN (*CRX) 10-325 MG TABLET 1 TAB PO (10:11)
[2024-07-09] MEDS: polyethylene glycoL 3350 17 GM POWD.PACK PO (10:11)
[2024-07-09] MEDS: SENNA/DOCUSATE SODIUM TABLET 2 TAB PO (10:11)
[2024-07-09] MEDS: ASPIRIN 325 MG ENTERIC TABLET PO (10:11)
[2024-07-09 10:14] VITALS: PULSE 71; RESP 18; TEMP 36.2; O2SAT 100
[2024-07-09 13:14] VITALS: BP 99/47; PULSE 75; RESP 16; TEMP 36.3; O2SAT 99
[2024-07-09] MEDS: ACETAMINOPHEN 500 MG TABLET PO (15:50)
--- NOTE | 2024-07-09 16:19 | P.PNOP_ITS ---
Progress Note: A&P Assessment and Plan (1) Degenerative joint disease of knee, right: Qualifiers: Osteoarthritis type: primary Qualified Code(s): M17.11 - Unilateral primary osteoarthritis, right knee Code(s): M17.11 - Unilateral primary osteoarthritis, right knee Status: Acute Assessment and Plan: POD 1 DOING WELL. OK TO DC HOME F/U IN 3 WEEKS Subjective Subjective Date/Time Seen: 07/09/24 16:19 Interval history: POD 1 DOING WELL. PAIN CONTROLLED, NO CALF PAIN. GOOD PROGRESS WITH PT Exam Extrem: Other: VSS AFEBRILE DRESSING DRY NV INTACT NEG HOMANS SIGN, CALF SOFT NON TENDER Objective Data Vital Signs Vital Signs: Vital Signs - 24 hr 07/08/24 20:46 07/08/24 23:42 07/09/24 03:19 Temperature 36.2 C L 36.3 C L 36.3 C L Pulse Rate 60 61 66 Respiratory Rate 18 16 16 Blood Pressure 138/70 110/55 L 100/58 L Pulse Oximetry 98 98 98 Oxygen Delivery 07/09/24 08:00 07/09/24 10:09 07/09/24 10:14 Temperature 36.2 C L Pulse Rate 71 Respiratory Rate 18 Blood Pressure 97/50 L Pulse Oximetry 100 Oxygen Delivery Room Air 07/09/24 13:14 Temperature 36.3 C L Pulse Rate 75 Respiratory Rate 16 Blood Pressure 99/47 L Pulse Oximetry 99 Oxygen Delivery Intake/Output Intake/Output: Intake & Output 07/06/24 07/07/24 07/08/24 07/09/24 23:59 23:59 23:59 23:59 Intake Total 1460 647 Balance 1460 647 Meds/Results Medications: Active Medications Generic Name Dose Route Start Last Admin Trade Name Freq PRN Reason Stop Dose Admin Acetaminophen 500 mg 07/08/24 11:29 07/09/24 15:50 Acetaminophen 500 Mg Tablet PO 500 mg Q6H PRN Administration Pain Rated 1-3 Aspirin 325 mg 07/08/24 11:29 07/09/24 10:11 Aspirin 325 Mg Enteric Tablet PO 325 mg Q12HR ROSSANA Administration Diazepam 5 mg 07/08/24 11:29 Diazepam (*Crx) 5 Mg Tablet PO Q8H PRN Spasms Diphenhydramine HCl 25 mg 07/08/24 11:29 Diphenhydramine Hcl Inj 50 Mg/Ml Vial IV PUSH Q6H PRN Itching Hydrochlorothiazide 25 mg 07/08/24 12:00 07/09/24 10:09 Hydrochlorothiazide 25 Mg Tablet PO Not Given QAM ROSSANA Hydromorphone HCl 1 mg 07/08/24 11:29 Hydromorphone Hcl Inj (*Crx) 1 Mg/Ml Syr IV PUSH Q2H PRN Breakthrough Pain Rated 7-10 or NPO Hydromorphone HCl 0.5 mg 07/08/24 11:29 Hydromorphone Hcl Inj (*Crx) 1 Mg/Ml Syr IV PUSH Q2H PRN Breakthrough Pain Rated 4-6 or NPO Ibuprofen 800 mg in 200 mls @ 400 mls/hr 07/08/24 11:29 07/08/24 12:26 Caldolor 800 Mg/200 Ml IVPB 400 mls/hr Q6H PRN Administration Breakthrough Pain Rated 1-3 or NPO Naloxone HCl 0.1 mg 07/08/24 11:29 Naloxone Hcl 0.4 Mg/Ml Vial IV PUSH Q2M PRN Opiate Reversal Ondansetron HCl 4 mg 07/08/24 11:29 07/08/24 20:03 Ondansetron Inj 4 Mg/2 Ml Vial IV PUSH 4 mg Q4H PRN Administration Nausea And Vomiting Oxycodone/Acetaminophen 1 tablet 07/08/24 11:29 07/09/24 04:31 Oxycodone/Acetaminophen (*Crx) 5-325 Mg Tablet PO 1 tablet Q4H PRN Administration Pain Rated 4-6 Oxycodone/Acetaminophen 1 tab 07/08/24 11:29 07/09/24 10:11 Oxycodone/Acetaminophen (*Crx) 10-325 Mg Tablet PO 1 tab Q6H PRN Administration Pain Rated 7-10 Polyethylene Glycol 17 gm 07/08/24 12:00 07/09/24 10:11 Polyethylene Glycol 3350 17 Gm Powd.Pack PO 17 gm QAM ROSSANA Administration Senna/Docusate Sodium 2 tab 07/08/24 11:29 07/09/24 10:11 Senna/Docusate Sodium Tablet PO 2 tab BID ROSSANA Administration Simvastatin 40 mg 07/08/24 12:00 07/09/24 10:11 Simvastatin 20 Mg Tablet PO 40 mg DAILY ROSSANA Administration Telmisartan 80 mg 07/08/24 12:00 07/09/24 10:09 Telmisartan 40 Mg Tablet PO Not Given QAM [facility] Radiology Results: ITS Impressions Knee X-Ray 07/08/24 10:26 IMPRESSION: 1. Right total knee arthroplasty, negative for postoperative purposes. Labs Labs: Laboratory Results - last 24 hr 07/09/24 06:18 WBC 8.5 RBC 3.94 L Hgb 9.3 L Hct 30.2 L MCV 76.6 L MCH 23.6 L MCHC 30.8 L RDW 14.2 Plt Count 219 MPV 10.7 H Immature Gran % (Auto) 0.4 Neut % (Auto) 75.6 H Lymph % (Auto) 15.1 L Benton % (Auto) 8.5 Eos % (Auto) 0.2 Baso % (Auto) 0.2 Lymph # (Auto) 1.28 Benton # (Auto) 0.7 H Eos # (Auto) 0.0 Baso # (Auto) 0.0 Abs Immat Gran (auto) 0.03 Absolute Neuts (auto) 6.4 Absolute Nucleated RBC 0.000 Nucleated RBC % 0.0 Sodium 136 L Potassium 4.1 Chloride 101 Carbon Dioxide 27 Anion Gap 8 BUN 12 Creatinine 0.55 L Estim Creat Clear Calc 78 Estimated GFR > 60 Glucose 107 Calcium 9.2
--- OUTSIDE RECORDS SUMMARY | 2024-07-10 15:07 | XMS_ITS | Patient Health Summary ---
Author Organization [facility] Address [address] [place] [address] Care Team Providers Care Store Lead Name Role Phone Brunilda Pope PA-C Primary Care Provider + Note from [facility],non-owned Affiliates and Associated Physician Practices is amultiple site organization consisting of ambulatory clinics and hospital sitesin [place], [place], [place] and [place]. This disclosure is being madepursuant to the Care Everywhere program and may not contain all information available regarding this patient. Last updated 18.[facility] Allergies No known active allergies Medications * Be aware that medications may not be up to date on this document. Alwaysverify current medications with the patient. * cyanocobalamin (VITAMIN B-12) 500 MCG tablet Take 1,000 mcg by mouth * BIOTIN PO * vitamin D, ergocalciferol, (DRISDOL) 1.25 MG (88611 UT) capsule(Started 09/13/2020) TAKE 1 CAPSULES BY MOUTH EVERY WEEK DIRECTED FOR 28 DAYS * simvastatin (ZOCOR) 40 MG tablet(Started 08/17/2020) Take 40 mg by mouth once daily * telmisartan-hydroCHLOROthiazide (MICARDIS HCT) 80-25 MG(Started 09/20/2020) Immunizations * Covid Pfizer primary monovalent 12+ yr 0.3mL Purple cap(Given 10/03/2020, 09/12/2020) Social History Tobacco Use Types Packs/Day Years Used Date Smoking Tobacco: Never Smokeless Tobacco: Never Sex and Gender Information Value Date Recorded Sex Assigned at Not on file Gender Identity Not on file Sexual Orientation Not on file Last Filed Vital Signs Vital Sign Reading Time Taken Comments Blood Pressure - - Pulse - - Temperature - - Respiratory Rate - - Oxygen Saturation - - Inhaled Oxygen Concentration - - Weight 94.3 kg (208 lb) 10/07/2020 3:12 PM CDT Height 154.9 cm (5' 1 ) 10/07/2020 3:12 PM CDT Body Mass Index 39.3 10/07/2020 3:12 PM CDT Procedures * UT DRAIN/INJECT LARGE JOINT/BURSA(Performed 01/19/2021) Performed for Primary osteoarthritis of left knee * UT DRAIN/INJECT LARGE JOINT/BURSA(Performed 10/07/2020) Performed for Chronic pain of left knee * XR KNEE LEFT 4VW OR MORE(Performed 10/07/2020) Performed for Chronic pain of left knee Results * UT DRAIN/INJECT LARGE JOINT/BURSA (01/19/2021 1:40 PM CDT) Narrative Nigel Schaeffer MD - 01/19/2021 1:40 PM CDT Nigel Schaeffer MD ? 01/19/2021 ??1:40 PM INJECTION PROCEDURE NOTE: ??Pros and cons of injection were discussed with the patient. ??Patient has elected and consented to proceed. ??The superolateral aspect of the left knee(s) was prepped in the usual sterile manner. ??The skin, subcutaneous tissues and capsule were anesthetized with 1% xylocaine. ??An 18g needle was inserted into the knee, <1 ccs of clear yellow fluid was then aspirated, and 80 mgs triamcinalone and 3 ccs 1% xylocaine were then injected. ??This was well tolerated. Nigel Schaeffer MD PROCEDURE/MINOR SURG ICAL ORDERABLES * UT DRAIN/INJECT LARGE JOINT/BURSA (10/07/2020 4:02 PM CDT) Narrative Nigel Schaeffer MD - 10/07/2020 4:02 PM CDT Fabien Gregory MD ? 10/07/2020 ??4:03 PM INJECTION PROCEDURE NOTE: ??Pros and cons of injection were discussed with the patient. ??Patient has elected and consented to proceed. ??The superolateral aspect of the left knee was prepped in the usual sterile manner. ??The skin, subcutaneous tissues and capsule were anesthetized with 1% lidocaine. ??An 18 g needle was inserted into the knee, 4 mL of clear yellow fluid was then aspirated, and 80 mgs triamcinalone and 3 mL 1% xylocaine were then injected. ??This was well tolerated. Nigel Schaeffer MD PROCEDURE/MINOR SURG ICAL ORDERABLES * XR KNEE LEFT 4VW OR MORE (10/07/2020 3:41 PM CDT) Anatomical Region Laterality Modality Lower Extremity Radiographic Kenzie ging 10/07/2020 4:36 PM CDT Impressions 10/07/2020 4:37 PM CDT 1. ??Primary osteoarthritis in the medial compartment *Reading Radiologist: Yocasta Perez on 10/07/2020 at 4:37 PM Narrative 10/07/2020 4:37 PM CDT Left knee, 4 views weightbearing DATE: 10/07/2020. INDICATION: Pain. FINDINGS: There is advanced joint space narrowing medial compartment indicating cartilage loss and primary osteoarthritis. ??The lateral compartment is preserved. ??The patellofemoral space is relatively preserved. ??There are numerous paratracheal are spurs around the patellofemoral space and from the medial compartment. ??No joint effusion. Procedure Note Yocasta Perez MD - 10/07/2020 Left knee, 4 views weightbearing DATE: 10/07/2020. INDICATION: Pain. FINDINGS: There is advanced joint space narrowing medial compartment indicating cartilage loss and primary osteoarthritis. The lateral compartment is preserved. The patellofemoral space is relatively preserved. There are numerous paratracheal are spurs around the patellofemoral space and from the medial compartment. No joint effusion. IMPRESSION 1. Primary osteoarthritis in the medial compartment *Reading Radiologist: Yocasta Perez on 10/07/2020 at 4:37 PM Nigel Schaeffer MD DIAGNOSTIC IMAGING O [facility] Care Teams Store Lead Relationship Specialty Start Date End Date Brunilda Pope PA-C [address] [place] [id number] [facility] - General 10/07/20
--- OUTSIDE RECORDS SUMMARY | 2024-07-10 15:07 | XMS_ITS | Clinical Summary ---
Author Organization [facility] Address [address] [place] [address] Care Team Providers Care Tube Test Technician Name Role Phone Brunilda Pope PA-C Primary Care Provider + Source Comments [facility],non-owned Affiliates and Associated Physician Practices is amultiple site organization consisting of ambulatory clinics and hospital sitesin [place], [place], [place] and [place]. This disclosure is being madepursuant to the Care Everywhere program and may not contain all information available regarding this patient. Last updated 18.[facility] [place] Allergies No known active allergies Medications * Be aware that medications may not be up to date on this document. Alwaysverify current medications with the patient. Medication Sig Dispensed Refills Start Date End Date Status cyanocobalamin (VITAMIN B-12) 500 MCG tablet Take 1,000 mcg by mouth Active BIOTIN PO Active vitamin D, ergocalciferol, (DRISDOL) 1.25 MG (06980 UT) capsule TAKE 1 CAPSULES BY MOUTH EVERY WEEK DIRECTED FOR 28 DAYS 09/13/2020 Active simvastatin (ZOCOR) 40 MG tablet Take 40 mg by mouth once daily 08/17/2020 Active telmisartan-hydroCHLO ROthiazide (MICARDIS HCT) 80-25 MG 09/20/2020 Active Immunizations Name Administration Dates Next Due Cinthia Melon Power primary monoval ent 12+ yr 0.3mL Purple cap 10/03/2020,09/12/2020 Social History Tobacco Use Types Packs/Day Years [...] Mass Index 39.3 10/07/2020 3:12 PM CDT Plan of Treatment Health Maintenance Due Date Last Done Comments BONE DENSITY TESTING 1950 COLOGUARD (AGES 45-75) - COL ON CA SCREENING 1952 COLON MONITORING 1952 COLONOSCOPY - COLON CA SCREENING 1952 CT COLONOGRAPHY - COLON CA SCREENING 1952 Colorectal Cancer Screening 1952 FIT - COLON CA SCREENING 1952 FLEX SIG - COLON CA SCREENING 1952 MAMMOGRAM 1952 HEPATITIS C SCREENING 02/14/1970 DTAP/TDAP/TD VACCINES (1 - Tdap) 02/18/1971 PNEUMOCOCCAL VACCINE 50+ (1 of 1 - PCV) 02/18/2002 ZOSTER VACCINE (1 of 2) 02/18/2002 SCREENING FOR DIABETES 10/07/2020 COVID-19 VACCINE (3 - 2023-2 5 season) 2024 10/03/2020, 09/12/2020 INFLUENZA VACCINE (#1) 2024 DEPRESSION SCREENING 06/18/2024 MEDICARE AWV ? CALENDAR YEAR 2024 Respiratory Syncytial Virus (RSV) Vaccine Pt: or over 60 yrs (1 - 1-dose 75+ series) 02/18/2027 HEPATITIS B VACCINE Aged Out No longe r eligible based on patient's age to complete this topic HIB VACCINE Aged Out No longer eligi ble based on patient's age to complete this topic HPV VACCINE Aged Out No longer eligi ble based on patient's age to complete this topic MENINGOCOCCAL (Group B) VACCINE Aged Out No longer eligible b ased on patient's age to complete this topic MENINGOCOCCAL VACCINE Aged Out No taiwo neymar eligible based on patient's age to complete this topic Care Teams Tube Test Technician Relationship Specialty Start Date End Date Brunilda Pope PA-C [address] [place] [address] [phone] PCP - General 10/07/20
--- OUTSIDE RECORDS SUMMARY | 2024-07-10 15:07 | XMS_ITS | Data Portability ---
Author Organization [facility] [place] Address [address] [place] [address] Care Team Providers Care Motorcyles Final Inspector Name Role Phone SONAL ANDERSON Primary Care Provider Unavailabl e Assessment Encounter Date Assessment Date Assessment LastModified by Organization Details LastModified Time 03/12/2024 03/12/2024 Due for repeat DEXA. Will discuss after surgery. [email or web address] Not available 03/12/2024 12:55:21 03/20/2024 03/20/2024 Did a 12 lead EKG on patient for surgical clearance [email or web address] Not available 03/20/2024 13:13:35 Plan of Treatment Reminders Order Date Submit Date Provider Last Modified By Organization Details Last Modified Time Details Appointments None recorded. Lab CMP, serum or plasma 2023 [facility], [address] [place] [address], [address], [place], [address], 06:19:35 lipid panel, serum 2023 024 [facility], [address] [place] [address], [address], [place], [address], 06:19:34 CBC w/ auto diff 2023 024 [facility], [address] [place] [address], [address], [place], [address], 06:19:39 urinalysis complete, reflex culture 2023 [facility], [address] [facility], [address], [place], [address], 06:19:37 Referral None recorded. Procedures None recorded. Surgeries None recorded. Imaging MAMMO, screening, digital, bilateral 2023 [facility], [address], [place], [address], 4 10:51:57 electrocard iogram 2023 [facility] ([facility]), [address] [place], [address], 4 11:23:56 XR, lumbosacral spine, 2 or 3 view - low back pain during the night 2023 [facility], [address] [place] [address] , [place], [address], 4 13:26:26 Medication Orders simvastatin 40 mg tablet 2023 [facility], [address], [address], [place], [place], [id number], 4 11:55:41 phentermine 15 mg capsule 2023 024 [facility], [address] [place], [address], 4 11:55:43 Vitamin D2 1,250 mcg (50,000 unit) capsule 2023 024 [facility], [address] [place] [address], [address], [place], [place], [id number], 4 11:55:41 telmisartan 80 mg-hydrochl orothiazide 25 mg tablet 2023 LUIGI [facility], [address], [address], [place], [place], [id number], 11:55:41 phentermine 15 mg capsule 2023 [facility], [address], [address], [place], [place], [id number], 12:31:41 telmisartan 80 mg-hydrochl orothiazide 25 mg tablet 2023 [facility], [address], [address], [place], [place], [id number], 12:31:38 simvastatin 40 mg tablet 2023 [facility], [address] [facility], [address], [place], [place], [id number], 12:31:37 Patient TargetsNo targets recorded. Patient InstructionsNo instructions recorded. Reason for Referral None Reported. Results Created Date Observation Date Name Description Value Unit Range Abnormal Flag Note LastModifiedBy Organization Detail LastModifiedTime 03/20/2003/21/2024 LIPID PANEL cholesterol, total 169 mg/dL 100-19 9 Not Available [facility] ([facility]) [address] [facility], [place], [address], 03/22/2024 06:19:34 03/20/2003/21/2024 LIPID PANEL triglyceride s 73 mg/dL 0-149 Not Available [facility] ([facility]) [address] [facility], [place], [address], 03/22/2024 06:19:34 03/20/2003/21/2024 LIPID PANEL HDL cholesterol 65 mg/dL >39 Not Available [facility] ([facility]) [address] [facility], [place], [address], 03/22/2024 06:19:34 03/20/20 24 03/21/2024 LIPID PANEL VLDL cholesterol monserrat 14 mg/dL 5-40 Not Available [facility] ([facility]) [address] [place], [address], 03/22/2024 06:19:34 03/20/20 24 03/21/2024 LIPID PANEL LDL chol calc ([facility]) 90 mg/dL 0-99 Not Available [facility] ([facility]) [address] [facility], [place], [address], 03/22/2024 06:19:34 03/20/20 24 03/21/2024 COMP. METAB OLIC PANEL (14) glucose 88 mg/dL 70-99 Not Available [facility] ([facility]) [address] [place], [address], 03/22/2024 06:19:35 03/20/20 24 03/21/2024 COMP. METAB OLIC PANEL (14) BUN 11 mg/dL 8-27 Not Available [facility] ([facility]) [address] [place], [address], 03/22/2024 06:19:35 03/20/20 24 03/21/2024 COMP. METAB OLIC PANEL (14) creatinine 0.58 mg/dL 0.57-1 .00 Not Available [facility] ([facility]) [address] [place], [address], 03/22/2024 06:19:35 03/20/20 24 03/21/2024 COMP. METAB OLIC PANEL (14) eGFR 96 mL/mi n/1.7 3 >59 Not Available [facility] ([facility]) [address] [place], [address], 03/22/2024 06:19:35 03/20/20 24 03/21/2024 COMP. METAB OLIC PANEL (14) BUN/creatini ne ratio 19 12-28 Not Available [facility] ([facility]) [address] [facility], [place], [address], 03/22/2024 06:19:35 03/20/20 24 03/21/2024 COMP. METAB OLIC PANEL (14) sodium 140 mmol/ L 134-14 4 Not Available [facility] ([facility]) [address] [facility], [place], [address], 03/22/2024 06:19:35 03/20/20 24 03/21/2024 COMP. METAB OLIC PANEL (14) potassium 4.1 mmol/ L 3.5-5. 2 Not Available [facility] ([facility]) [address] [facility], [place], [address], 03/22/2024 06:19:35 03/20/20 24 03/21/2024 COMP. METAB OLIC PANEL (14) chloride 101 mmol/ L 96-106 Not Available [facility] ([facility]) [address] [facility], [place], [address], 03/22/2024 06:19:35 03/20/20 24 03/21/2024 COMP. METAB OLIC PANEL (14) carbon dioxide, total 26 mmol/ L 20-29 Not Available [facility] ([facility]) [address] [facility], [place], [address], 03/22/2024 06:19:35 03/20/20 24 03/21/2024 COMP. METAB OLIC PANEL (14) calcium 10.1 mg/dL 8.7-10 .3 Not Available [facility] ([facility]) [address] [facility], [place], [address], 03/22/2024 06:19:35 03/20/20 24 03/21/2024 COMP. METAB OLIC PANEL (14) protein, total 7.5 g/dL 6.0-8. 5 Not Available [facility] ([facility]) [address] [facility], [place], [address], 03/22/2024 06:19:35 03/20/20 24 03/21/2024 COMP. METAB OLIC PANEL (14) albumin 4.5 g/dL 3.8-4. 8 Not Available [facility] ([facility]) [address] [facility], [place], [address], 03/22/2024 06:19:35 03/20/20 24 03/21/2024 COMP. METAB OLIC PANEL (14) globulin, total 3.0 g/dL 1.5-4. 5 Not Available [facility] ([facility]) [address] [facility], [place], [address], 03/22/2024 06:19:35 03/20/20 24 03/21/2024 COMP. METAB OLIC PANEL (14) bilirubin, total 0.4 mg/dL 0.0-1. 2 Not Available [facility] ([facility]) [address] [facility], [place], [address], 03/22/2024 06:19:35 03/20/20 24 03/21/2024 COMP. METAB OLIC PANEL (14) alkaline phosphatase 99 IU/L 44-121 Not Available [facility] ([facility]) [address] [facility], [place], [address], 03/22/2024 06:19:35 03/20/20 24 03/21/2024 COMP. METAB OLIC PANEL (14) AST (SGOT) 12 IU/L 0-40 Not Available [facility] ([facility]) [address] [facility], [place], [address], 03/22/2024 06:19:35 03/20/20 24 03/21/2024 COMP. METAB OLIC PANEL (14) ALT (SGPT) 9 IU/L 0-32 Not Available [facility] ([facility]) [address] [facility], [place], [address], 03/22/2024 06:19:35 03/20/20 24 03/21/2024 MICRO SCOPI C EXAMI NATIO N WBC 0-5 /hpf 0-5 Not Available [facility] ([facility]) [address] [facility], [place], [address], 03/22/2024 06:19:37 03/20/20 24 03/21/2024 MICRO SCOPI C EXAMI NATIO N RBC None seen /hpf 0-2 Not Available [facility] ([facility]) [address] [facility], [place], [address], 03/22/2024 06:19:37 03/20/2003/21/2024 MICRO SCOPI C EXAMI NATIO N epithelial cells (non renal) 0-10 /hpf 0-10 Not Available [facility] ([facility]) [address] [facility], [place], [address], 03/22/2024 06:19:37 03/20/20 24 03/21/2024 MICRO SCOPI C EXAMI NATIO N casts None seen /lpf nonese en Not Available [facility] ([facility]) [address] [facility], [place], [address], 03/22/2024 06:19:37 03/20/20 24 03/21/2024 MICRO SCOPI C EXAMI NATIO N bacteria Modera te nonese en/few abnormal Not Available [facility] ([facility]) [address] [facility], [place], [address], 03/22/2024 06:19:37 03/20/20 24 03/21/2024 UA/M W/RFL X CULTU RE, ROUTI NE specific gravity 1.021 1.005- 1.030 Not Available [facility] ([facility]) [address] [facility], [place], [address], 03/22/2024 06:19:37 03/20/20 24 03/21/2024 UA/M W/RFL X CULTU RE, ROUTI NE pH 6.0 5.0-7. 5 Not Available [facility] ([facility]) [address] [place], [address], 03/22/2024 06:19:37 03/20/20 24 03/21/2024 UA/M W/RFL X CULTU RE, ROUTI NE urine-color YELLOW yellow Not Available [facility] ([facility]) [address] [place], [address], 03/22/2024 06:19:37 03/20/2003/21/2024 UA/M W/RFL X CULTU RE, ROUTI NE appearance CLEAR clear Not Available [facility] ([facility]) [address] [place], [address], 03/22/2024 06:19:37 03/20/2003/21/2024 UA/M W/RFL X CULTU RE, ROUTI NE WBC esterase 2+ negati ve abnormal Not Available [facility] ([facility]) [address] [place], [address], 03/22/2024 06:19:37 03/20/20 24 03/21/2024 UA/M W/RFL X CULTU RE, ROUTI NE protein NEGATI VE negati ve/tra ce Not Available [facility] ([facility]) [address] [place], [address], 03/22/2024 06:19:37 03/20/20 24 03/21/2024 UA/M W/RFL X CULTU RE, ROUTI NE glucose NEGATI VE negati ve Not Available [facility] ([facility]) [address] [place], [address], 03/22/2024 06:19:37 03/20/20 24 03/21/2024 UA/M W/RFL X CULTU RE, ROUTI NE ketones NEGATI VE negati ve Not Available [facility] ([facility]) [address] [place], [address], 03/22/2024 06:19:37 03/20/2003/21/2024 UA/M W/RFL X CULTU RE, ROUTI NE occult blood NEGATI VE negati ve Not Available [facility] ([facility]) [address] [facility], [place], [address], 03/22/2024 06:19:37 03/20/2003/21/2024 UA/M W/RFL X CULTU RE, ROUTI NE bilirubin NEGATI VE negati ve Not Available [facility] ([facility]) [address] [facility], [place], [address], 03/22/2024 06:19:37 03/20/2003/21/2024 UA/M W/RFL X CULTU RE, ROUTI NE urobilinogen ,semi-qn 0.2 mg/dL 0.2-1. 0 Not Available [facility] ([facility]) [address] [facility], [place], [address], 03/22/2024 06:19:37 03/20/2003/21/2024 UA/M W/RFL X CULTU RE, ROUTI NE nitrite, urine NEGATI VE negati ve Not Available [facility] ([facility]) [address] [facility], [place], [address], 03/22/2024 06:19:37 03/20/20 24 03/21/2024 UA/M W/RFL X CULTU RE, ROUTI NE microscopic examination SEE BELOW: Micro scopi c was indic ated and was perfo rmed. Not Available [facility] ([facility]) [address] [place], [address], 03/22/2024 06:19:37 03/20/20 24 03/21/2024 UA/M W/RFL X CULTU RE, ROUTI NE urinalysis reflex COMMEN T This speci men has refle xed to a Urine Cultu re. Not Available [facility] ([facility]) [address] [facility], [place], [address], 03/22/2024 06:19:37 03/20/20 24 03/21/2024 CBC WITH DIFFE RENTI AL/PL ATELE T WBC 4.8 x10e3 /uL 3.4-10 .8 Not Available [facility] ([facility]) [address] [facility], [place], [address], 03/22/2024 06:19:38 03/20/20 24 03/21/2024 CBC WITH DIFFE RENTI AL/PL ATELE T RBC 5.19 x10e6 /uL 3.77-5 .28 Not Available [facility] ([facility]) [address] [facility], [place], [address], 03/22/2024 06:19:38 03/20/2003/21/2024 CBC WITH DIFFE RENTI AL/PL ATELE T hemoglobin 11.9 g/dL 11.1-1 5.9 Not Available [facility] ([facility]) [address] [facility], [place], [address], 03/22/2024 06:19:38 03/20/20 24 03/21/2024 CBC WITH DIFFE RENTI AL/PL ATELE T hematocrit 39.1 % 34.0-4 6.6 Not Available [facility] ([facility]) [address] [facility], [place], [address], 03/22/2024 06:19:38 03/20/20 24 03/21/2024 CBC WITH DIFFE RENTI AL/PL ATELE T MCV 75 fL 79-97 below low normal Not Available [facility] ([facility]) [address] [facility], [place], [address], 03/22/2024 06:19:38 03/20/20 24 03/21/2024 CBC WITH DIFFE RENTI AL/PL ATELE T MCH 22.9 pg 26.6-3 3.0 below low normal Not Available [facility] ([facility]) [address] [facility], [place], [address], 03/22/2024 06:19:38 03/20/20 24 03/21/2024 CBC WITH DIFFE RENTI AL/PL ATELE T MCHC 30.4 g/dL 31.5-3 5.7 below low normal Not Available [facility] ([facility]) [address] [facility], [place], [address], 03/22/2024 06:19:38 03/20/20 24 03/21/2024 CBC WITH DIFFE RENTI AL/PL ATELE T RDW 15.2 % 11.7-1 5.4 Not Available [facility] ([facility]) [address] [facility], [place], [address], 03/22/2024 06:19:38 03/20/20 24 03/21/2024 CBC WITH DIFFE RENTI AL/PL ATELE T platelets 324 x10e3 /uL 150-45 0 Not Available [facility] ([facility]) [address] [facility], [place], [address], 03/22/2024 06:19:38 03/20/20 24 03/21/2024 CBC WITH DIFFE RENTI AL/PL ATELE T neutrophils 52 % notest ab. Not Available [facility] ([facility]) [address] [facility], [place], [address], 03/22/2024 06:19:38 03/20/20 24 03/21/2024 CBC WITH DIFFE RENTI AL/PL ATELE T lymphs 33 % notest ab. Not Available [facility] ([facility]) [address] [facility], [place], [address], 03/22/2024 06:19:38 03/20/20 24 03/21/2024 CBC WITH DIFFE RENTI AL/PL ATELE T monocytes 11 % notest ab. Not Available [facility] ([facility]) [address] [facility], [place], [address], 03/22/2024 06:19:38 03/20/2003/21/2024 CBC WITH DIFFE RENTI AL/PL ATELE T eos 3 % notest ab. Not Available [facility] ([facility]) [address] [facility], [place], [address], 03/22/2024 06:19:38 03/20/2003/21/2024 CBC WITH DIFFE RENTI AL/PL ATELE T basos 1 % notest ab. Not Available [facility] ([facility]) [address] [facility], [place], [address], 03/22/2024 06:19:38 03/20/20 24 03/21/2024 CBC WITH DIFFE RENTI AL/PL ATELE T neutrophils (absolute) 2.5 x10e3 /uL 1.4-7. 0 Not Available [facility] ([facility]) [address] [facility], [place], [address], 03/22/2024 06:19:38 03/20/2003/21/2024 CBC WITH DIFFE RENTI AL/PL ATELE T lymphs (absolute) 1.6 x10e3 /uL 0.7-3. 1 Not Available [facility] ([facility]) [address] [facility], [place], [address], 03/22/2024 06:19:38 03/20/2003/21/2024 CBC WITH DIFFE RENTI AL/PL ATELE T monocytes(ab solute) 0.5 x10e3 /uL 0.1-0. 9 Not Available [facility] ([facility]) [address] [facility], [place], [address], 03/22/2024 06:19:38 03/20/20 24 03/21/2024 CBC WITH DIFFE RENTI AL/PL ATELE T eos (absolute) 0.1 x10e3 /uL 0.0-0. 4 Not Available [facility] ([facility]) [address] [facility], [place], [address], 03/22/2024 06:19:38 03/20/20 24 03/21/2024 CBC WITH DIFFE RENTI AL/PL ATELE T baso (absolute) 0.0 x10e3 /uL 0.0-0. 2 Not Available [facility] ([facility]) [address] [facility], [place], [address], 03/22/2024 06:19:38 03/20/20 24 03/21/2024 CBC WITH DIFFE RENTI AL/PL ATELE T immature granulocytes 0 % notest ab. Not Available [facility] ([facility]) [address] [facility], [place], [address], 03/22/2024 06:19:38 03/20/20 24 03/21/2024 CBC WITH DIFFE RENTI AL/PL ATELE T immature grans (abs) 0.0 x10e3 /uL 0.0-0. 1 Not Available [facility] ([facility]) [address] [facility], [place], [address], 03/22/2024 06:19:38 03/20/20 24 03/22/2024 URINE CULTU RE, ANTOINETTEI NE urine culture, routine Final report Not Available [facility] ([facility]) [address] [place], [address], 03/22/2024 06:19:40 03/20/2003/22/2024 URINE CULTU RE, ROUTI NE result 1 Commen t Cultu re shows less than 10,00 0 colon y formi ng units of bacte flavia per ankit liter of urine . This colon y count is not gener ally consi dered to be clini jamie signi fican t. Not Available [facility] ([facility]) [address] [facility], [place], [address], 03/22/2024 06:19:40 03/10/20 24 03/10/2024 XR, knee No observ ation record ed. [facility] [address], [place], [address], 03/10/2024 17:46:42 03/18/20 24 03/18/2024 XR, lumbo sacra l spine , 2 or 3 view No observ ation record ed. [facility] [address] [place], [address], 03/26/2024 10:49:32 03/18/20 24 03/18/2024 XR, lumbo sacra l spine , 2 or 3 view No observ ation record ed. [facility] [address] [place], [address], 03/26/2024 10:49:33 04/18/20 24 04/18/2024 elect neena uv am No observ ation record ed. [facility] [address] [place], [address], 04/21/2024 09:22:10 05/14/20 24 05/13/2024 MAMMO , scree lexii, digit al, bilat eral No observ ation record ed. [facility] [address], [place], [address], 05/20/2024 11:13:15 06/17/20 24 06/04/2024 XR, wrist No observ ation record ed. [facility] [address], [place], [address], 07/04/2024 11:29:54 Result Notes None recorded. Problems Name Problem SNOMED Code Status Onset Date Resolution Date Notes Provider Name and Address Organization Details Recorded Time Hyperlip idemia 42896018 Active 2017 Monique Blair PA-C Attn: Accounting ,[address] [facility] [address], [place], [address] , [facility] 8 14:21:09 Body mass index 30+ - obesity 368775859 Active 2017 Monique Blair PA-C Attn: Accounting ,[address] [place], [address] , [place] [facility] 8 12:40:47 Anterior tibial stress syndrome 006915857 Active 2017 Monique Blair PA-C Attn: Accounting ,[address] [place], [address] , [place] [facility] 8 12:41:34 Pain in left knee Active 2017 Monique Blair PA-C Attn: Accounting ,[address] [place], [address] , [place] [facility] 8 12:10:46 Pain of left hip joint 39052014452 9100 Active 2017 Monique Blair PA-C Attn: Accounting ,[address] [place], [address] , [place] [facility] 8 12:10:47 Osteoart hritis of knee 696420998 Active 2017 Monique Blair PA-C Attn: Accounting ,[address] [place], [address] , [place] [facility] 8 14:13:16 Screenin g for malignan t neoplasm of breast Active 2018 Mammogra m in 06/2018 was normal, repeat in 1 year JON JOHNSON Attn: Accounting ,[address] [place], [address] , [place] [facility] 9 11:30:31 Screenin g for malignan t neoplasm of colon Active 2018 Colonosc opy performe d in 2016 was normal, repeat in 10 years JON JOHNSON Attn: Accounting ,[address] [place], [address] , [place] [facility] 9 11:30:40 Screenin g for osteopor osis Active 2018 Dexa scan in 2018 was normal, no evidence of osteopor osis. Plan to repeat 06/2022 JON JOHNSON Attn: Accounting ,[address] [facility], [place], [place], [address] [place] [address] , [place] [facility] 1 13:37:42 Vitamin D deficien cy 08154708 Active 2019 JON JOHNSON Attn: Accounting ,[address] [facility], [place], [place], [address] [place] [address] , [place] [facility] 0 15:16:10 Hypercal cemia 90646139 Active 2019 Work-up normal, poss. due to HCTZ medicati on. Stable compared to prior labs, asympato miguel . Will continue to monitor. JON JOHNSON Attn: Accounting ,[address] [facility], [place], [place], [address] [place] [address] , [place] [facility] 2 14:45:49 Alpha thalasse roland 26916058 Active 2020 JON JOHNSON Attn: Accounting ,[address], [place], [address] [place] [address] , [place] [facility] 1 11:38:00 [facility]ia l hyperten eve 91753379 Active Monique Blair PA-C Attn: Accounting ,[address], [place], [address] [place] [address] , [place] [facility] 6 15:55:37 Obesity 398091619 Completed 09/19/2017 Monique Blair PA-C Attn: Accounting ,[address], [place], [address] [place] [address] , [place] [facility] 8 12:38:25 Cramp in lower limb 193704655 Active Monique Blair PA-C Attn: Accounting ,[address] [place], [address] , [place] [facility] 6 15:55:37 Blood glucose outside referenc e range 107819715 Active Monique Blair PA-C Attn: Accounting ,[address] [place], [address] , [facility] 6 14:14:25 Vaginal mass 120225463 Active Bonifacio Sanon ra[place], [place] - [facility] 6 19:40:24 Problem Notes None recorded. Procedures Surgical History Date Name Laterality Status Provider Name and Address Organization Details Recorded Time 06/27/19 24 total knee replacement completed Elizabeth Ashby MA [place] - [facility] 03/12/2024 11:04:02 06/18/18 74 Cholecystectomy completed Pito Mckinnon [facility] 01/19/20 14:47:17 06/18/18 73 Dilation and Curettage completed Pito Mckinnon [place] - [facility] 01/19/2016 14:47:17 Imaging Results Imaging Date Name Status LastModified by Organization Details LastModified Time 03/10/2024 XR, knee completed [address] [place] [address], [address], 03/10/2024 17:46:42 03/18/2024 XR, lumbosacral spine, 2 or 3 view completed [facility] [address] [place], [address], 03/26/2024 10:49:32 03/18/2024 XR, lumbosacral spine, 2 or 3 view completed [facility] [address] [place], [address], 03/26/2024 10:49:33 04/18/2024 electrocardiogram completed [facility] [address] [place], [address], 04/21/2024 09:22:10 05/13/2024 MAMMO, screening, digital, bilateral completed [facility] [address] [address], [place], [address], 05/20/2024 11:13:15 06/04/2024 XR, wrist completed [facility] [address] [place] [address], [address], 07/04/2024 11:29:54 Procedure Notes None recorded. Medical Equipment None Reported. Allergies No known drug allergies Medications Name Sig Start Date Stop Date Status Note LastModified by Organization Details LastModified Time cetirizine 10 mg tablet TAKE 1 TABLET BY MOUTH EVERY DAY IN THE MORNING FOR 10 DAYS 09/21 completed Not Available Not Available Not Available meloxicam 15 mg tablet Take 1 tablet every day by oral route as needed for 90 days. 03/12 completed Not Available Not Available Not Available permethrin 5 % topical cream PLEASE SEE ATTACHED FOR DETAILED DIRECTION S 09/21 completed Not Available Not Available Not Available phentermine 15 mg capsule TAKE 1 CAPSULE BY MOUTH EVERY DAY IN THE MORNING BEFORE OR 1 TO 2 HOURS AFTER BREAKFAST active Not Available Not Available No t Available sulfamethox azole 800 mg-trimetho prim 160 mg tablet TAKE 1 TABLET BY MOUTH EVERY 12 HOURS FOR 10 DAYS FOR UTI 03/12 completed Not Available Not Available Not Available simvastatin 40 mg tablet TAKE 1 TABLET BY MOUTH EVERY DAY active Not Available Not Available No t Available oxycodone-a cetaminophe n 5 mg-325 mg tablet TAKE 1 TABLET BY MOUTH EVERY 8 HOURS NEEDED FOR PAIN 03/12 completed Not Available Not Available Not Available baclofen 10 mg tablet TAKE 1 TABLET TWICE A DAY NEEDED 05/30 completed Not Available Not Available Not Available methylpredn isolone 4 mg tablets in a dose pack take as directed 05/30 completed Not Available Not Available Not Available Vitamin D2 1,250 mcg (50,000 unit) capsule TAKE 1 CAPSULE BY MOUTH WEEKLY active Not Available Not Available No t Available chlorhexidi ne gluconate 4 % topical liquid PLEASE SEE ATTACHED FOR DETAILED DIRECTION S 03/12 completed Not Available Not Available Not Available telmisartan 80 mg-hydrochl orothiazide 25 mg tablet one tab po q d active Not Available Not Available No t Available Vitals Date Recorded Body height Provider Name an d Address Organization Details Last Updated DateTime 03/12/2024 156.21 cm PRISCILLA Cain - [facility] 03/12/2024 10:53:11 Date Recorded Body mass index (BMI) Body weight Provider Name and Address Organization Details Last Updated DateTime 03/12/2024 39.2 kg/m2 48921.99 g PRISCILLA Cain [facility] 11:00:58 Date Recorded Oxygen saturation Oxygen saturation in Arterial blood by Pulse oximetry Provider Name and Address Organization Details Last Updated DateTime 03/12/2024 97 % 97 % Elizabeth Ashby MA [facility] 03/12/2024 11:05:45 Date Recorded Heart rate Provider Name an d Address Organization Details Last Updated DateTime 03/12/2024 71 /min Elizabeth Ashby MA [facility] 03/12/2024 11:05:52 Date Recorded Body temperature Provider Name a nd Address Organization Details Last Updated DateTime 03/12/2024 97.9 [degF] Elizabeth Ashby MA [facility] 11:05:58 Date Recorded Body height Provider Name an d Address Organization Details Last Updated DateTime 03/20/2024 156.21 cm Elizabeth Ashby [place] [facility] 03/20/2024 12:12:54 Date Recorded Body height Provider Name an d Address Organization Details Last Updated DateTime 04/08/2024 156.21 cm Elizabeth Ashby [place] [facility] 04/08/2024 11:24:50 Date Recorded Body mass index (BMI) Body weight Provider Name and Address Organization Details Last Updated DateTime 04/08/2024 38.3 kg/m2 49926.03 amrik Ashby [place] [facility] 11:29:42 Date Recorded Oxygen saturation Oxygen saturation in Arterial blood by Pulse oximetry Provider Name and Address Organization Details Last Updated DateTime 04/08/2024 99 % 99 % Elizabeth Ashby [place] [facility] 04/08/2024 11:34:47 Date Recorded Heart rate Provider Name an d Address Organization Details Last Updated DateTime 04/08/2024 68 /min Elizabeth Ashby [place] [facility] 04/08/2024 11:34:53 Date Recorded Body height Provider Name an d Address Organization Details Last Updated DateTime 05/13/2024 156.21 cm Elizabeth Ashby [place] [facility] 05/13/2024 17:01:13 Date Recorded Body mass index (BMI) Body weight Provider Name and Address Organization Details Last Updated DateTime 05/13/2024 37.7 kg/m2 67880.25 amrik Ashby MA [facility] 17:05:37 Date Recorded Oxygen saturation Oxygen saturation in Arterial blood by Pulse oximetry Provider Name and Address Organization Details Last Updated DateTime 05/13/2024 97 % 97 % Elizabeth Ashby [facility] 05/13/2024 17:07:57 Date Recorded Heart rate Provider Name an d Address Organization Details Last Updated DateTime 05/13/2024 71 /min Elizaebthlyndsey Ashby MA [facility] 05/13/2024 17:08:01 Date Recorded Body height Provider Name an d Address Organization Details Last Updated DateTime 05/28/2024 156.21 cm Elizabethlyndsey Ashby [facility] 05/28/2024 10:46:10 Date Recorded Body mass index (BMI) Body weight Provider Name and Address Organization Details Last Updated DateTime 05/28/2024 37.2 kg/m2 74211.47 g Elizabeth Ashby MA [facility] 10:49:15 Date Recorded Oxygen saturation Oxygen saturation in Arterial blood by Pulse oximetry Provider Name and Address Organization Details Last Updated DateTime 05/28/2024 100 % 100 % Elizabeth Ashby [facility] 05/28/2024 10:51:39 Date Recorded Heart rate Provider Name an d Address Organization Details Last Updated DateTime 05/28/2024 68 /min Elizabeth Ashby MA [facility] 05/28/2024 10:51:44 Date Recorded Systolic blood pressure Diastolic blood pressure Provider Name and Address Organization Details Last Updated DateTime 03/12/2024 118 mm[Hg] 78 mm[Hg] Elizabeth Isma [facility] 03/12/2024 11:05:26 Date Recorded Systolic blood pressure Diastolic blood pressure Provider Name and Address Organization Details Last Updated DateTime 04/08/2024 120 mm[Hg] 78 mm[Hg] Elizabeth Ashby [facility] 04/08/2024 11:34:24 Date Recorded Systolic blood pressure Diastolic blood pressure Provider Name and Address Organization Details Last Updated DateTime 05/13/2024 118 mm[Hg] 78 mm[Hg] Elizabeth Ashby MA [facility] 05/13/2024 17:07:31 Date Recorded Systolic blood pressure Diastolic blood pressure Provider Name and Address Organization Details Last Updated DateTime 05/28/2024 118 mm[Hg] 78 mm[Hg] Elizabeth Ashby [place] [facility] 05/28/2024 10:51:22 Social History Question Answer Notes LastModified by Organizat ion Details LastModified Time Tobacco Smoking Status Never Smoker Pito Mckinnon [place] [facility] 01/19/2016 14:47:16 Do You Have An Advance Directive? No Information not available 01/19/2016 What Is Your Level Of Alcohol Consumption? None Information not available 01/19/2016 What Is Your Level Of Caffeine Consumption? Moderate Information not available 01/19/2016 How Much Tobacco Do You Chew? None Information not available 01/19/2016 Are You Currently Employed? Yes [email or web address] Information not available 02/03/2016 What Type Of Diet Are You Following? REGULAR Information not available 01/19/2016 Which Illicit Or Recreational Drugs Have You Used? Denies Information not available 02/03/2016 Do You Or Have You Ever Used E-cigarettes Or Vape? 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 No Information not available 01/19/2016 Hard Of Hearing Or Deaf In One Or Both Ears? No Information not available 01/19/2016 Legally Blind In One Or Both Eyes? No Information no t available 01/19/2016 Live Alone Or With Others? Alone [email or web address] Information not available 02/03/2016 Marital Status Single Informatio n not available 01/19/2016 What Was The Date Of Your Most Recent Tobacco Screening? 05/13/2024 Information not available 05/13/2024 How Many Children Do You Have? 3 [email or web address] Information not available 02/03/2016 Performs Monthly Self-breast Exam? No Information no t available 01/19/2016 What Is Your Relationship Status? Single Information not available 02/03/2016 Seat Belts Used Routinely Yes Information not available 01/19/2016 Are You Sexually Active? No [email or web address] Information not available 02/03/2016 Smoke Alarm In Home Yes Information not available 01/19/2016 Do You Or Have You Ever Used Smokeless Tobacco? Never Used Smokeless Tobacco Information not available 05/20/2020 How Much Tobacco Do You Smoke? No Information not available 01/19/2016 General Stress Level Low Information not available 01/19/2016 Do You Use Any Illicit Or Recreational Drugs? No Information not available 04/24/2022 Do You Use Sunscreen Routinely? No Information not available 01/19/2016 Has Tobacco Cessation Counseling Been Provided? No Information not available 04/24/2022 On What Date Was Tobacco Cessation Counseling Provided? 05/13/2024 Information not available 05/13/2024 Do You Or Have You Ever Used Any Other Forms Of Tobacco Or Nicotine? No Information not available 04/24/2022 Sex: Unknown Functional Status Question Answer Note LastModified by Organization D etails LastModified Time What is your exercise level? Moderate Information not available 01/19/2016 Mental Status None recorded. Family History Relationship Description Onset Age of this Age Resolved Age Notes LastModified by Organization Details LastModified Time Sister Malignant tumor of breast 40 50 [email or web address] Not available 2015 11:34:27 Sister Heart disease eewig Not available 2015 11:34:53 Brother Diabetes mellitus eewig Not available 2015 11:34:53 Medical History Condition Response Coronary Artery Disease N Blood Diseases N Kidney Cyst N Hyperthyroidism N Blood disorders N MRSA N Blood Transfusion N Emphysema N Blood Clots N COPD N Depression N Pneumonia N Peripheral Arterial Disease N Premature N Edema N TIA N Headaches/Migraines N Anxiety Disorder N Obesity N Infertility N Polyps N Acid Reflux (GERD) N Hematuria N Stroke N Neck Injury N Polio N Hospital Admission other than N Neurologic Disorder N Other Sleep Disorders N Rheumatoid Arthritis N Fibromyalgia N Abdominal Aortic Aneurysm Repair N Kidney Disease N Heart Conditions N Heart Disease/Heart Problems N Hospitalizations N Brain Tumors N Acne N Eating Disorder N Skin Problems N Constipation N Meningitis N Tuberculosis N Cerebral Palsy N Myocardial Infarction N Asthma N Substance Abuse N Peripheral Vascular Disease N Vertigo N Sleep Disorder N Cirrhosis N Pulmonary Embolism N Chicken Pox Y Flomax Use Past or Present N Hematologic Disease N Anxiety/Depression N Thyroid Disease N Colon Cancer N Glaucoma N Lung Disease N Developmental or Behavioral Disorders N Bipolar N Pacemaker N Diverticulitis/Diverticulosis N Anesthesia Complications N Orthopedic Problems N Orthotics N Head Injury/Concussion N Congenital Anomalies N Higgins Bite N Chronic Kidney Disease N Endometriosis N Liver Disease N Dialysis N Schizophrenia N Speech Delay N Chronic Obstructive Pulmonary Disease N Parkinson's Disease N Thyroid Problems N Developmental Delay N GI Problems N Anemia N Immune System Disorder N Multiple Sclerosis N Colon Polyps N Heart Attack (PR) N Diabetes N Cardiomyopathy N Blood Transfusions N Heart Problems/Murmur N Eye Trauma N Congestive Heart Failure (CHF) N Valvular Heart Disease N Hyperlipidemia N Double Vision N Abuse/Domestic Violence N Hepatitis B N Lupus N Epilepsy/Seizures N Reflux/GERD N Aneurysm N Bronchitis N Heart Disease N Hypertension N Pre-Eclampsia N Heart Failure N Other N Gout N High Blood Pressure Y Atrial Fibrillation N Kidney Stones N Head Trauma/Injury N Congenital Heart Disease N Spine Problems N Gastrointestinal Disease N Lung Mass N Sinusitis N Obstructive Sleep Apnea N Muscle, Joint, or Bone Problems N Autoimmune disease N Vision or Eye Problems Y Arthritis N Blood Clot N Cancer N Seasonal allergies Y Leg or Foot Ulcers N Raynaud's Disease N Aortic Aneurysm N Arrhythmia N Headaches N Heart Problems N Ambl[place]pia N Ear or Hearing Problems N Hyperparathyroidism N Migraines N Artificial Joints N Kidney or Bladder Problems N NSAID Use N Encephalitis N PTSD N Ulcers N Prostate Hypertrophy N Bleeding Disorder N AIDS/HIV N Urinary Tract Infection N Back Problems N Allergies N Atrial Flutter N GERD/Reflux N Hepatitis N Autism Spectrum Disorder (ASD) N Breast Cancer N Hernia N Hypothyroidism N Breast Problem N Genitourinary Disease N Deep Vein Thrombosis N Varicose Veins N Cystic Fibrosis N Hearing Loss N Developmental Problems N Carotid Disease N Vitamin D Deficiency N ADHD N Bladder or Kidney Problems N High Cholesterol N Meniers N Valvular Abnormalities N Psychiatric/Mental Health Condition N Organ Transplant N Foot Deformity N Allergies/Hayfever N Dyslipidemia N Hyponatremia N Diabetic Eye Disease N Osteoporosis/Osteopenia N Back Pain N Proteinuria N Mental Illness N Neurological Problems N Ovarian Cancer N Bedwetting N Seizures/Epilepsy N Kidney Failure N Ocular trauma N Diverticulitis N Dementia N Sleep Apnea N Mental Problems N Warfarin Management N Osteoporosis N Gynecological History Statement/Question Response On BCP's at Conception? N STIs/STDs N HPV Vaccine N Duration of Flow (days) 0 Age at Menarche 13 Current Control Method Menopause Age at First Child 22 If Post Menopausal, Age at Menopause 48 Frequency of Cycle (Q days) Sexually Active? N Menses Monthly N Sexual Problems? N LMP Unknown Desired Control Method N/A Obstetrics History GPAL:G 2 P 3 0 0 3 Type Value Multiple Births 1 Full Term 3 Induced 0 Spontaneous 0 Premature 0 Living 3 Ectopics 0 Total 2 Immunizations Vaccine Type Date Status Note Provider Nam e and Address Organization Details Recorded Time COVID-19, mRNA, LNP-S, PF, 30 mcg/0.3 mL dose 09/12/2020 completed Liz Le [place], [place] [facility] 03/20/2023 12:47:53 COVID-19, mRNA, LNP-S, PF, 30 mcg/0.3 mL dose 10/03/2020 completed Liz Le [place] [facility] 03/20/2023 12:47:53 COVID-19, mRNA, LNP-S, PF, 30 mcg/0.3 mL dose 05/21/2021 completed Liz Le [place] [facility] 03/20/2023 12:47:53 Past Encounters Encounter ID Performer Location Encounter Start Date Encounter Closed Date Diagnosis/Indication Diagnosis SNOMED-CT Code Diagnosis ICD10 Code Diagnosis Note [id number] EZEQUIEL Madera (Adult Med) [address] [place] [address] [phone] 01/19/2016 14:21:19 01/19/2016 15:44:34 Obesity 188040788 E66.9 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 Only complaints are HTN and bilateral calf pain. She has never had a colonoscop y. [id number] [facility] ([facility]) [address] [place] [address] [id number] 0 02/03/2016 12:04:14 02/04/2016 17:38:27 Gynecologic examination 07603529 Z01.419 Z11.51 Screening mammography 24 996067 Z12.31 Vaginal mass 161593392 N 89.8 Vaginal mass (mucosal) for excision (out patient). Will schedule. 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 Discussed exercising 30 minutes/da y 5 days/week Cramp in lower limb 4499 05555 R25.2 Well controlled with baclofen PRN Essential hypertension 37157926 I10 126/84 - WNL Well controlled with telmisarta n 80mg/HCTZ 25mg [id number] EZEQUIEL Madera (Adult Med) [address] [place] [address] [id number] 0 09/18/2016 09:38:24 09/18/2016 18:19:54 Cramp in lower limb 845707828 R25.2 Will refer to PT for eval and helping with stretchesR TC if no improvemen t Essential hypertension 74081226 I10 120/76 - WNL, NAD Well controlled with telmisarta n 80mg/HCTZ 25mg Blood gluc ose outside reference range 874391421 R73.09 a1c: 6.1 Discussed not drinking her calories Advised 30 minutes of exercise 5 days/week Advised 3 balanced meals with lots of fruits and vegetables [id number] EZEQUIEL Madera (Adult Med) [address] [place] [address] [phone] 0 03/22/2017 10:27:48 03/22/2017 11:44:01 Blood glucose outside reference range 319774372 R73.09 a1c: 6.1 Discussed not drinking her calories Advised 30 minutes of exercise 5 days/week Advised 3 balanced meals with lots of fruits and vegetables Essential hypertension 39399671 I10 110/80 - WNL, NAD Well controlled with telmisarta n 80mg/HCTZ 25mg Obesity 344403509 E66.9 Advised 30 minutes of exercise 5 days/week Advised to not drink her calories Advised 3 balanced meals/day with plenty of fruits and vegetables Cramp in lower limb 4499 64168 R25.2 c/w baclofen PRN Postmenopausal state 764 05700 Z78.0 [id number] EZEQUIEL Madera (Adult Med) [address] [place] [address] [phone] 0 08/16/2017 10:13:25 08/16/2017 12:49:24 Pain in left lower limb 792900215 M79.605 Will begin with PT and stretchesI f no improvemen t, patient to RTC and will go to xraysLabs always WNL Essential hypertension 76172078 I10 112/68 - WNL, NAD Well controlled with telmisarta n 80mg/HCTZ 25mg Discussed DASH diet Advised 30 minutes of exercise minimum dailyAdvis ed tobacco, alcohol, caffeine all increase BPAdvised goal for BP is <140/90 Hyperlipidemia 16859137 E78.5 Stopped taking medication because it was upsetting stomach but was taking it in the morning - advised to take at night Patient to restart at this time and RTC 3 months for fasting labs Cramp in lower limb 4499 45569 R25.2 c/w baclofen PRN [id number] EZEQUIEL Madera (Adult Med) [address] [place] [address] [id number] 09/19/2017 10:35:23 09/19/2017 12:56:01 Anterior tibial stress syndrome 078253244 S86.892D Since the PT has been effective for the patient, she was instructed to continue to help her manage the pain. She was also advised to buy a calf compressio n stocking to manage any swelling and help reduce the pain. She was instructed to return to the clinic if her symptoms worsen.c/w ibuprofen PRN for pain but goal is to take it minimally Essential hypertension 86743177 I10 112/68 - WNL, NAD Well controlled with telmisarta n 80mg/HCTZ 25mg Discussed DASH diet Advised 30 minutes of exercise minimum dailyAdvis ed tobacco, alcohol, caffeine all increase BPAdvised goal for BP is <140/90 Body mass index 30+ - obesity 923915163 Z68.39 Advised 30 minutes of exercise 5 days/week Advised to not drink her calories Advised 3 balanced meals/day with plenty of fruits and vegetables [id number] EZEQUIEL Madera (Adult Med) [address] [place] [address] [phone] 0 10/24/2017 10:57:43 10/24/2017 12:59:19 Pain of left hip joint 9243440867 51269 M25.552 WIll begin with xray of left hip and knee and determine course of action based on results - likely OA and will refer to ortho; if xrays WNL, will likely proceed with lumbar MRI Pain in left knee 413236 2000 93230 M25.562 WIll begin with xray of left hip and knee and determine course of action based on results - likely OA and will refer to ortho; if xrays WNL, will likely proceed with lumbar MRI Body mass index 30+ - obesity 094382910 Z68.39 Advised 30 minutes of exercise 5 days/week Advised to not drink her calories Advised 3 balanced meals/day with plenty of fruits and vegetables Essential hypertension 88103930 I10 116/68 - WNL, NAD Well controlled with telmisarta n 80mg/HCTZ 25mg Discussed DASH diet Advised 30 minutes of exercise minimum dailyAdvis ed tobacco, alcohol, caffeine all increase BPAdvised goal for BP is <140/90 Cramp in lower limb 4499 27751 R25.2 c/w baclofen PRN and calf sleeve - well controlled at this time [id number] SANDER ANGUIANOC Lizett (Adult Med) [address] [place] [address] [id number] 0 02/15/2018 12:03:38 02/15/2018 13:43:52 Strain of trapezius muscle 291566146 S46.811A start medrol dose pack for pain use heat/ice as needed start home stretching exercises schedule PT if not improving in 2 weeks at home f/u prn Pain in left knee 972089 4865 39643 M25.562 contact info provided for dr winston/may as needed [id number] EZEQUIEL Madera (Adult Med) [address] [place] [address] [phone] 0 05/30/2018 11:04:32 05/31/2018 10:20:34 Essential hypertension 55103151 I10 102/70 - WNL, NAD Well controlled with telmisarta n 80mg/HCTZ 25mg Discussed DASH diet Advised 30 minutes of exercise minimum dailyAdvis ed tobacco, alcohol, caffeine all increase BPAdvised goal for BP is <140/90 Body mass index 30+ - obesity 720146775 Z68.39 Advised 30 minutes of exercise 5 days/week Advised to not drink her calories Advised 3 balanced meals/day with plenty of fruits and vegetables Hyperlipidemia 85348778 E78.5 Stopped taking medication because it was upsetting stomach but was taking it in the morning - advised to take at night Patient to restart at this time and RTC 3 months for fasting labs Blood gluc ose outside reference range 764351380 R73.09 a1c: 5.7 - improved Screening for malignant neoplasm of breast 862652015 Z12.31 [id number] JON JOHNSON (Adult Med) [address] [place] [address] [phone] 0 03/12/2019 10:46:39 03/13/2019 08:53:10 Hyperlipidemia 66556921 E78.5 C/w simvastati n 40 mgWill recheck at next visit Essential hypertension 36682064 I10 BP Today: 112/78c/w telmisarta n 80 mg - hctz 25 mg Discussed DASH diet Advised 30 minutes of exercise minimum daily Advised tobacco, alcohol, caffeine all increase BP Advised goal for BP is <140/90 Contact office if BP is > 140/90 consistent ly DIscussed consequenc es of HTN including kidney, eye, heart damage, stroke, and even RTC 6 months for BP check Body mass index 30+ - obesity 325677238 Z68.37 -Discussed lifestyle modificati ons including 150 minutes moderate intensity exercise per week, restrictin g intake of fast/proce ssed foods, sweets, sugary beverages. Screening for malignant neoplasm of breast 237591409 Z12.31 Mammogram in 06/2018 was normal, repeat in 1 year Screening for malignant neoplasm of colon 146956869 Z12.11 Colonoscop y performed in 2017 was normal, repeat in 10 years Screening for osteoporosis 204980809 Z13.820 Dexa scan in 2018 was normal, no evidence of osteoporos is- Continue to stay active and take OTC calcium and vitamin D Osteoarthr itis of knee 331472418 M17.9 Left kneeSympto ms worse at the moment due to weather changeXray showd mild-moder ate joint space narrowing and degenerati ve changesHas been [facility] Dr[facility] Grier of 1 cortisone injection in 2018, patient states it hurt more than provided her with reliefHx of PT and OT in the pastTakes NSAID twice a day with food to help Adult heal th examination 045455050 Z00.00 PHQ 07/27 was negative in office today (0 out of 27) [id number] JON JOHNSON (Adult Med) [address] [place] [address] [phone] 0 05/20/2020 10:01:47 05/21/2020 09:16:49 Essential hypertension 77942882 I10 BP Today: unable to check today since phone visitc/w telmisarta n 80 mg - hctz 25 mgAdmits to waking up with a headache in the mornings, tends to improve after being awake for a bit and with food intake Does not check BP at home Discussed DASH diet Advised 30 minutes of exercise minimum daily Advised tobacco, alcohol, caffeine all increase BP Advised goal for BP is <140/90 Contact office if BP is > 140/90 consistent ly DIscussed consequenc es of HTN including kidney, eye, heart damage, stroke, and even - will refill medication , continue taking daily- sent rx for BP cuff, patient to monitor BP at home and when she develops the HAs- RTC in 6 months rather than 1 year to monitor Hyperlipidemia 69007117 E78.5 Kiki cerda, ran out 2 months ago- C/w simvastati n 40 mg- will order lipid panel Screening for malignant neoplasm of breast 971967915 Z12.31 Mammogram in 06/2018 was normal, due for repeat- Provided patient with mammogram order, she understand s she needs to call and schedule appointmen t Screening for malignant neoplasm of colon 368467964 Z12.11 Colonoscop y performed in 2017 was normal, repeat in 10 years Screening for osteoporosis 210501527 Z13.820 Dexa scan in 2018 was normal, no evidence of osteoporos is- Continue to stay active and take OTC calcium and vitamin D Body mass index 30+ - obesity 505783525 Z68.37 -Discussed lifestyle modificati ons including 150 minutes moderate intensity exercise per week, restrictin g intake of fast/proce ssed foods, sweets, sugary beverages. 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 - will order annual labs, plans to come to office in 2 weeks for labs [id number] JON JOHNSON (Adult Med) [address] [place] [address] [phone] 0 09/14/2020 09:24:16 09/15/2020 11:10:21 Essential hypertension 29291271 I10 BP Today: 120/70 - Continue with telmisarta n 80 mg - HCTZ 25 mg QD - Declines BP cuff at this time, will continue to encourage regular BP checks with cuff at home in the future - Return to clinic in 6 months for BP check Discussed DASH diet Advised 30 minutes of exercise minimum daily Advised tobacco, alcohol, caffeine all increase BP Advised goal for BP is < 140/90 Contact office if BP is > 140/90 consistent ly Discussed consequenc es of HTN including kidney, eye, heart damage, stroke, and even Hyperlipidemia 76259129 E78.5 Lipid panel at goal on 06/07/2020 , currently taking simvastati n 40 mg QD - Continue with simvastati n 40 mg QD Screening for malignant neoplasm of breast 321420928 Z12.31 Normal mammogram on 06/24/2018, due for repeat Ordered repeat mammogram at last visit in 05/2020, but she has not scheduled an appointmen t yet - Informed her that mammogram order will be valid for 6 months, she understand s she needs to call and schedule an appointmen t within this time frame Screening for osteoporosis 067262949 Z13.820 Normal DEXA scan on 06/28/2017, no evidence of osteoporos is Low vitamin D (23.0) and slightly elevated ionized calcium (5.8) on 06/15/2020 - Encouraged her to stay active and to take OTC calcium and vitamin D - Ordered repeat vitamin D, PTH and calcium levels Adult [facility] th examination 376481661 Z00.00 She is staying healthy overall, has not had COVID, 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 Received first Pfizer COVID vaccine on 09/12/2020 without any significan t side effects PHQ 07/27 was negative in office today (1 out of 27) - Ordered repeat HbA1c, vitamin D, PTH and calcium levels Headache 61391046 R51.9 Complains of intermitte nt frontal headache upon awaking in the morning x 3-4 months Describes it as pounding sensation that improves after drinking water and food Reports eating enough food and staying hydrated throughout the day; she recently cut out sweets from her diet and usually does not eat past 7 pm Has taken her antihypert ensive medication s as prescribed , but recently started taking them at around noon, instead of earlier in the morning; denies checking her BP regularly, BP 120/70 today States she is not concerned about these headaches at this time No personal or family history of migraines No nausea, vision changes, photophobi a, phonophobi a, polydipsia , polyuria, or polyphagia - Ordered repeat HbA1c, vitamin D, PTH and calcium levels - Continue to monitor headaches and BP at home - Contact or return to clinic if headaches worsen Mean corpu scular volume below reference range [id number] R71.8 01/25/2016: Hgb mildly low, MCV low, RDW high, iron and ferritin normal 06/07/2020 : Hgb normal, MCV low, RDW normal 06/15/2020 (Repeat Labs): MCV low, blood smear: microcytos is, poikilocyt osis, normal iron, elevated Fe, and normal Hgb frac. profile DDx: a-thalasse roland minor She has seen hematology earlier this month and had additional blood work obtained, follow-up appointmen t scheduled next week to discuss results - Continue to follow hematology as scheduled and their recommenda tions [id number] JON JOHNSON (Adult Med) [address] [place] [address] 01/18/2021 12:42:01 01/20/2021 13:40:02 Osteoarthritis of knee [id number] M17.9 Bilateral knees (Left knee > right knee)Sympt oms worse at the moment due to weather changeXray showd mild-moder ate joint space narrowing and degenerati ve changesHas been seen by [facility] and Dr. Grier of 1 cortisone injection in 2018, patient states it hurt more than provided her with reliefHx of PT and OT in the pastLast had a steroid injection in her left knee on 10/07/20. Patient states that this was very helpful in relieving some of her pain. They also drained some of the effusion in her left knee that was present with no complicati ons.Arsenio prado has a follow up wtih Dr. Schaeffer tomorrow, is needing us to place a new referral for her today.Take s ibuprofen with minimal relief of symptoms.- new referral placed today, continue care with Dr. 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 Essential hypertension [id number] I10 BP Today: 120/80 - Continue with telmisarta n 80 mg - HCTZ 25 mg QD - Declines BP cuff at this time, will continue to encourage regular BP checks with cuff at home in the future - Return to clinic in 6 months for BP check, may need to change HCTZ medication if calcium continues to be elevated Hyperlipidemia 26721436 E78.5 Lipid panel at goal on 06/07/2020 , currently taking simvastati n 40 mg QD - Continue with simvastati n 40 mg QD [id number] JON JOHNSON (Adult Med) [address] [place] [phone] 09/30/2021 10:46:50 10/03/2021 10:05:24 Essential hypertension 97801103 I10 BP Today: 140/86 and 130/84, notes she has been taking her BP medication irregular over the last few weeks since running low and was stressed getting to office this morning - Continue with telmisarta n 80 mg - HCTZ 25 mg QD - Declines BP cuff at this time, will continue to encourage regular BP checks with cuff at home in the future - Return to clinic in 6 months for BP check, may need to change HCTZ medication if calcium continues to be elevated Hyperlipidemia 83447938 E78.5 Lipid panel at goal on 06/07/2020 , currently taking simvastati n 40 mg QD - Continue with simvastati n 40 mg QD- due for screening labs Adult heal th examination [id number] Z00.00 COVID vaccine and booster completed - Ordered repeat HbA1c, vitamin D, PTH and calcium levels Alpha thalassemia 182021 01 D56.0 Notes she saw the Hematologi st after our last appointmen t, she was diagnosed with alpha thalassemi a and discussed this further during her appointmen t. Discussed mostly genetics and to have her family members tested as well.She has intermitte nt mild shortness of breath with some activity, states hematology told her it is possibly from the thalassemi a and to just take it slow. Has not seen the shortness of breath getting worse.- monitor SOB and KRUGER, if progresses , please f/u Dyspnea on exertion 6084 5006 R06.09 Complainin g of mild intermitte nt KRUGER, was told it was likely from her thalassemi a- encouraged her to keep an eye on her SOB and if it seems to get worse, will consider cardiac and pulmonary work-up [id number] JON JOHNSON (Adult Med) [address] [place] [address] 04/24/2022 10:34:08 04/26/2022 09:49:22 Osteoarthritis of knee 861291166 M17.9 Bilateral knees (Left knee > right knee)Sympt oms worse at the moment due to weather changeXray shows mild-moder ate joint space narrowing and degenerati ve changesHas been seen by [facility] and Dr. Grier of cortisone injections , most recent 01/06, very helpful in relieving some of her pain. F/u cortisone shot 06/08.Hx of PT and OT in the pastHas been seeing Dr. Schaeffer. 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 Samples provided in office today.- c/w ortho Dyspnea on exertion 6084 5006 R06.09 Complainin g of mild continuing intermitte nt KRUGER, was told it was likely from her thalassemi a. States KRUGER has been gradually worsening, as well as her bilateral ankle edema.- Cardiac work-up (echo & ecg) ordered, given worsening SOB and bilateral ankle edema to r/o HF. Essential hypertension 03284044 I10 BP Today: 120/70 - Continue with telmisarta n 80 mg - HCTZ 25 mg QD - Pt previously denied BP cuff. Not interested in regular BP cuff checks at home. - Return to clinic in 6 months for BP check, may need to change HCTZ medication if calcium continues to be elevated Hyperlipidemia 39132707 E78.5 Lipid panel at goal on 09/30/21, currently taking simvastati n 40 mg QD - Continue with simvastati n 40 mg QD Alpha thalassemia 982685 01 D56.0 [facility] and was diagnosed with alpha thalassemi a 09/2020 and discussed this further during her appointmen t w/ heme. Discussed mostly genetics and to have her family members tested as well.She has intermitte nt mild shortness of breath with some activity, states hematology told her it is possibly from the thalassemi a and to just take it slow. Has noticed the SOB getting worse the past few months.- cardio work-up ordered today Left side sciatica 51736 23751 89577 M54.32 Onset 4 months, pt developed intermitte nt pain L side of back down to L posterior knee. Occurs 1-2x daily. Takes Aleve prn, helps somewhat. 10/10 severity when present. Does not engage in exercises. -PT referral provided today, pt advised to f/u.-XR, lumbosacra l spine ordered today, pt advised to complete.- Provided info packets on exercises to complete at home. Screening mammography 24 835962 Z12.31 Last mammo 03/11/21-Up dated mammo order provided today. Morbid obesity 523420059 E66.01 Advised decreased portion sizes, good food choices, limited eating out or fast food and eliminate soda and juice from diet. Advised physical activity daily and offered encouragem ent to continue with positive changes made so far. Depression screening 171 188800 Z13.31 PHQ 2/9 was negative in office today (0 out of 27) [id number] JON JOHNSON (Adult Med) [facility] [place] [place] [address] 07/14/2022 10:30:23 07/18/2022 13:14:12 Pruritic rash 04385968 L28.2 New pruritic scattered lesions on the upper arms and dorsum of hands bilaterall yNo known cause per ROS with patientOn exam: few (4-5) scattered small skin colored papules on the skin of the upper arms and dorsum of the hands. Small punctate area in the middle of lesions concerns me for some kind of bites.- discussed uncertaint y of the rash but will treat for possible bites first since it does not appear to be fungal, bacterial, or inflammato ry- try cetirizine to help with pruritis- discussed cleaning everything at home and washing clothes, bedding, etc thoroughly Morbid obesity 260769422 E66.01 Advised decreased portion sizes, good food choices, limited eating out or fast food and eliminate soda and juice from diet. Advised physical activity daily and offered encouragem ent to continue with positive changes made so far. Left side sciatica 47154 68367 69562 M54.32 Has been following with PT since last visit and has been a great improvemen t in her symptoms. Can now walk for longer periods of time without pain. No longer having to take pain medication daily. She recently requested continuati on of PT- PT renewal sent by staff, c/w PT- will continue to monitor [id number] JON JOHNSON (Adult Med) [address] [place] [address] 09/21/2022 09:51:03 09/25/2022 10:16:47 Morbid obesity 900036945 E66.01 Advised decreased portion sizes, good food choices, limited eating out or fast food and eliminate soda and juice from diet. Advised physical activity daily and offered encouragem ent to continue with positive changes made so far. Osteoarthr itis of knee 094471799 M17.9 Bilateral knees (Left knee > right knee)Sympt oms worse at the moment due to weather changeXray shows mild-moder ate joint space narrowing and degenerati ve changesHas been seen by [facility] and Dr. Grier of cortisone injections , most recent 06/08, very helpful in relieving some of her pain.Hx of PT and OT in the past At this visit , patient reports following with Ortho and getting cortisone injections every 3-4 months, however provider left the practice and patient has not been back. She notes the cortisone injections helping with her symptoms and would like a referral to another orthopaedi c surgeon. Takes Meloxicam and Tylenol prn with minimal relief of symptoms.- c/w Meloxicam and Tylenol prn for pain relief- Referral to Orthapedic surgeon Pruritic rash 92981464 L 28.2 Hx of insect bites with pruritic rash at last visit. Rash improved ~2 weeks after taking permethrin . Rash returned about 2 weeks ago on arms and hands. On exam: few scattered, skin-color ed, small papules on the skin of the arms and dorsum of the hands. No concerns for insects bites today.- Unsure of etiology. Denies any new detergents , body washes, lotions, or perfumes.- Patient reports still using permethrin . Instructed to d/c.- c/w cetirizine to help with pruritis- Start topical hydorcorti sone topical x 7 days to see if this helps Essential hypertension 34948140 I10 BP Today: 122/74 - Continue with telmisarta n 80 mg - HCTZ 25 mg QD - Pt previously denied BP cuff. Not interested in regular BP cuff checks at home. - Return to clinic in 6 months for BP check, may need to change HCTZ medication if calcium continues to be elevated- ECHO completed on 05/17/2022 . EF 61%. No abnormalit ies noted.- Patient has an extensive family history of cardiac disease and wishes to continue to follow with Cardiology . Denies any increased shortness of breath and chest pain- Cardiology referral Hyperlipidemia 27034331 E78.5 Lipid panel at goal on 09/30/21, currently taking simvastati n 40 mg QD - Continue with simvastati n 40 mg QD Depression screening 171 254918 Z13.31 PHQ 2/9 was negative in office today (0 out of 27) [id number] JON JOHNSON (Adult Med) [address] [place] [address] 01/19/2023 12:07:45 01/22/2023 14:28:43 Osteoarthritis of knee 115555235 M17.9 Bilateral knees (Left knee > right knee)Sympt oms worse at the moment due to weather changeXray shows mild-moder ate joint space narrowing and degenerati ve changesHx of cortisone injections , most recent 06/08, very helpful in relieving some of her pain.Hx of PT and OT in the past She saw orthopedic s who would like to proceed with L knee replacemen t but need her to lose 15 pounds before they can proceed. Here today to discuss options. Takes Meloxicam and Tylenol prn with minimal relief of symptoms.- c/w Meloxicam and Tylenol prn for pain relief- work on weight loss so we can proceed with knee surgery Essential hypertension 10670865 I10 BP Today: 118/86ECHO completed on 05/17/2022 . EF 61%. No abnormalit ies noted.- Continue with telmisarta n 80 mg - HCTZ 25 mg QD- BP kit given today due to starting low dose phentermin e, need to keep close eye on BP at home- Advised goal for BP is <140/90- Contact office if BP is > 140/90 consistent ly Hyperlipidemia 89538742 E78.5 Lipid panel at goal on 09/30/21, currently taking simvastati n 40 mg QD - Continue with simvastati n 40 mg QD Morbid obesity 760442461 E66.01 BMI 41.1, weight 221 lbsSaw orthopedic s who would like to proceed with L knee replacemen t but need her to lose 15 pounds before they can proceed. Here today to discuss options. No prior weight loss attempts. Can not exercise as much as before due to knee pain.Drink s soda intermitte ntly, eats overall healthy but snacks on chips and eats [place] [employer] a few times a week because she is where she works- discussed healthy food changes, water intake goals, scheduled eating times, portion sizes, and limit soda intake- discussed risk vs pros with phentermin e, patient aware of risk but current BP and HR is well controlled with no known ASCVD at this time. Declines chest pain, SOB, or palpitatio ns.- will prescribed short course of low dose phentermin e until surgery, needs to f/u monthly while being on this medication for weight check, test, BP check, HR check, and check for SE including palpitatio ns, dry mouth, insomnia, and increased anxiety- goal for weight loss: 1 pound per week for the first 4 weeks (>4 pounds at first f/u), then >4-5% (10-13 lbs) weight loss every 3 months- call us and stop medication if any side effects- f/u in 1 month- continue with supportive care Depression screening 171 493812 Z13.31 PHQ 2/9 was negative in office today (0 out of 27) [id number] [facility] [address] [place] [address] 02/16/2023 10:25:49 02/20/2023 08:31:19 Morbid obesity 138606024 E66.01 BMI 39.4, weight 212 lbs (221 lbs at last visit 01/19/23). 9 lb weight loss since last visit.Here for first follow up s/p being on phentermin e for 1 mo. Initially orthopedic s who would like to proceed with L knee replacemen t but need her to lose 15+ lbs before they can proceed, referred here for weight loss counseling . Can not exercise as much as before due to knee pain. No prior weight loss attempts. Since her last visit, pt has stopped drinking soda and juice. Has next apt with Ortho early March so hoping to lose enough weight by that apt. - discussed healthy food changes, water intake goals, scheduled eating times, portion sizes, and limit soda intake- discussed risk vs pros with phentermin e, patient aware of risk but current BP and HR is well controlled with no known ASCVD at this time. Declines chest pain, SOB, or palpitatio ns.- continue short course of low dose phentermin e (15mg) until pre-surger y weight loss goal is met- pt understand s she needs to f/u monthly while being on this medication for weight check, test, BP check, HR check, and check for SE including palpitatio ns, dry mouth, insomnia, and increased anxiety- goal for weight loss: 1 pound per week for the first 4 weeks (>4 pounds at first f/u), then >4-5% (10-13 lbs) weight loss every 3 months- call us and stop medication if any side effects- f/u in 1 month Essential hypertension 51984882 I10 BP Today: 118/72ECHO completed on 05/17/2022 . EF 61%. No abnormalit ies noted.- Continue with telmisarta n 80 mg - HCTZ 25 mg QD- BP kit given today due to starting low dose phentermin e, need to keep close eye on BP at home- Advised goal for BP is <140/90- Contact office if BP is > 140/90 consistent ly Depression screening 171 355291 Z13.31 PHQ 2/9 was negative in office today (0 out of 27) [id number] JON JOHNSON (Adult Med) [address] [place] [address] 03/20/2023 12:45:13 03/23/2023 15:23:32 Morbid obesity 343531457 E66.01 BMI 39.4, weight 212 lbs (221 lbs at last visit 01/19/23). 9 lb weight loss since last visit.BMI 38.6, weight 207 lbs. 5 lb weight loss since last visit Here for follow up s/p being on phentermin e for 2 months. Initially orthopedic s who would like to proceed with L knee replacemen t but need her to lose 15+ lbs before they can proceed, referred here for weight loss counseling . Can not exercise as much as before due to knee pain. No prior weight loss attempts. Since her last visit, pt has stopped drinking soda and juice. Has next apt with Ortho in 2 days. - discussed healthy food changes, water intake goals, scheduled eating times, portion sizes, and limit soda intake- discussed risk vs pros with phentermin e, patient aware of risk but current BP and HR is well controlled with no known ASCVD at this time. Declines chest pain, SOB, or palpitatio ns.- continue short course of low dose phentermin e (15mg) until pre-surger y weight loss goal is met- pt understand s she needs to f/u monthly while being on this medication for weight check, test, BP check, HR check, and check for SE including palpitatio ns, dry mouth, insomnia, and increased anxiety- goal for weight loss: 1 pound per week for the first 4 weeks (>4 pounds at first f/u), then >4-5% (10-13 lbs) weight loss every 3 months- call us and stop medication if any side effects- f/u in 1 month Essential hypertension 87727616 I10 BP Today: 120/72ECHO completed on 05/17/2022 . EF 61%. No abnormalit ies noted.- Continue with telmisarta n 80 mg - HCTZ 25 mg QD- BP kit given today due to starting low dose phentermin e, need to keep close eye on BP at home- Advised goal for BP is <140/90- Contact office if BP is > 140/90 consistent ly [id number] JON JOHNSON (Adult Med) [address] [place] [address] 04/11/2023 12:37:49 04/12/2023 14:14:15 Pre-surgery evaluation 113618318 Z01.818 Presents today for surgery clearance. She has been following with Ortho for L knee OA, they want her to lose 20 pounds before they will complete surgery. She has been on low dose phentermin e x 2 months which has helped her lose the weight. Ortho is ready to schedule surgery for next month. Needs surgical clearance today. No prior history of surgical complicati ons. Feeling well today with no complaints . No prior history of heart disease. Denies chest pain, SOB and palpitatio ns.- labs ordered today- EKG completed in the office today which was overall normal Obesity 930212958 E66.9 Weight 221 lbs at 01/19/23 visit. Down to 201 pounds today. Overall feels she has noticed weight loss and is making progress. Reports mild mouth dryness. No palpitatio ns, no headaches, sleep changes. States she has nighttime awakenings at baseline due to pain in her b/l knees but this has not been worsened since starting the phentermin e. She has stopped drinking soda and decreased her sugar intake. - discussed healthy food changes, water intake goals, scheduled eating times, portion sizes, and limit soda intake- discussed risk vs pros with phentermin e, patient aware of risk but current BP and HR is well controlled with no known ASCVD at this time. Declines chest pain, SOB, or palpitatio ns.- continue short course of low dose phentermin e (15mg) until pre-surger y weight loss goal is met- pt understand s she needs to f/u monthly while being on this medication for weight check, test, BP check, HR check, and check for SE including palpitatio ns, dry mouth, insomnia, and increased anxiety- goal for weight loss: 1 pound per week for the first 4 weeks (>4 pounds at first f/u), then >4-5% (10-13 lbs) weight loss every 3 months- call us and stop medication if any side effects- f/u in 1 month Essential hypertension 77054471 I10 BP Today: 124/78 ECHO completed on 05/17/2022 . EF 61%. No abnormalit ies noted. - Continue with telmisarta n 80 mg - HCTZ 25 mg QD- BP kit given today due to starting low dose phentermin e, need to keep close eye on BP at home- Advised goal for BP is <140/90- Contact office if BP is > 140/90 consistent ly [id number] MD Lizett Perry (Adult Med) [address] [place] [phone] 03/12/2024 10:50:29 03/14/2024 14:16:26 Osteoarthritis of knee 695047487 M17.9 Needs EKG for surgical clearance. Will also give her a month of Phetermine as she did for her previous surgery to help with weight loss. Also encourage healthy diet. Will follow up in one month. Obesity 753965336 E66.9 Essential hypertension 92573856 I10 Will return for fasting blood work and urine. Blood pressure well controlled today. Continue present medication . Will also return for EKG. Vitamin D deficiency 347 27324 E55.9 Low back pain 514947705 M54.50 Low back pain over the last year that she notices at night when trying to sleep. No neurologic symptoms. Will get an xray for further evaluation . Screening for malignant neoplasm of breast 627418938 Z12.39 Due for a mammogram. Will put order in. Hyperlipidemia 26737500 E78.5 Will return for fasting lipid. Screening mammography 24 841342 Z12.31 [id number] MD Lizett Perry (Adult Med) [address] [place] [phone] 03/20/2024 11:58:36 04/16/2024 11:34:51 Pre-surgery testing 301048599 Z01.89 Compared EKG to prior EKG. No acute changes. [id number] MD Lizett Perry (Adult Med) [address] [place] [phone] 04/08/2024 11:09:46 04/16/2024 11:54:46 Obesity 387606667 E66.9 Tolerating medication well. No problems. Has lost five pounds. Planning surgery in June. Continue working on healthy diet. Will continue to do home blood pressure and pulse checks. Seek medical attention if she has chest pain, shortness of breath, palpitatio ns or if pulse consistent ly over one hundred. Hyperlipidemia 31592541 E78.5 Fasting lipid profile good. Continue present medication . Essential hypertension 01369704 I10 Fasting blood work and urine good. EKG showed no acute change from previous EKG. Continue present medication . Osteoarthr itis of knee 072064245 M17.9 EKG showed no acute change. Will send clearance for surgery. 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 Is going to start physical therapy. [id number] [facility] [address] [place] [address] 05/13/2024 16:43:53 05/14/2024 09:41:21 Tendinitis of right wrist region [id number] 2497771 M67.833 Will try wearing wrist brace for next couple of weeks and avoiding aggravatin g activities . Will ice at the end of the day. If doesn't continue to improve she will let me know. Osteoarthr itis of knee 894066598 M17.9 Knee surgery in June. Body mass index 30+ - obesity 418702696 Z68.37 Taking Phentermin e to lower body weight for surgery. Would like to get down to 200. Surgery scheduled for mid June. Follow up for repeat vital sign check in one month. Low back pain 901733755 M54.50 Grade 1 anterolist hesis on x-ray. Physical therapy was helpful. Hyperlipidemia 48935985 E78.5 Fasting lipid profile in March was good. On Simvastati n. [id number] Socorro Arnold MD [facility] (Adult Med) [address] [place] [address] 05/28/2024 10:26:24 05/28/2024 10:52:41 Body mass index 30+ - obesity 819552162 Z68.37 Taking Phentermin e to lower body weight for surgery. Would like to get down to 200. Surgery scheduled for mid June. Follow up for repeat vital sign check in one month. Health Concerns Section Related Observation LastModified by Organization Detai ls LastModified Time None Recorded Concern Status LastModified by Organization Details LastModified Time None Recorded Advance Directives Directive N: Payers Encounter Date Sequence Insurance Name Policy Number Policy Miguel Covered Member ID Miguel Member ID Guarantor Name 03/12/2024 1 [facility] (MEDICARE REPLACEMENT/A DVANTAGE - HMO) [id number] Erma A Deboe [id number] Erma de Davey 03/20/2024 1 [facility] (MEDICARE REPLACEMENT/A DVANTAGE - HMO) [id number] Erma A Deboe [id number] Erma de Davey 04/08/2024 1 [facility] (MEDICARE REPLACEMENT/A DVANTAGE - HMO) [id number] Erma A Deboe [id number] Erma de Davey 05/13/2024 1 [facility] (MEDICARE REPLACEMENT/A DVANTAGE - HMO) [id number] Erma A Deboe [id number] Erma de Davey 05/28/2024 1 [facility] (MEDICARE REPLACEMENT/A DVANTAGE - HMO) [id number] Erma A Deboe [id number] Erma de Davey Notes Date Note Type Note Provider Name and Address Organization Details Recorded Time 03/12/2024 text/html here for six mon follow up, no concerns or problems, has hypertension and high cholesterol, takes Vitamin D, blood pressure well controlled, cholesterol good, no chest pain, no shortness of breath, no headaches, some back pain in lower back over the last year, intermittent, two or three nights in a row, notices it when in bed, no shooting pain, no weakness or numbness, no nausea or stomach pains, had cholecystectomy and left knee replacement June, needed to loose weight for knee surgery, so that is why took Phentermine, is going to have right knee done and will need to loose weight again, was told does not need to loose much weight, thinking surgery will be in June, took Phentermine for two months for last knee surgery, 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, 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, 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 [employer], before surgery could go up and down a couple flights of stairs and be comfortable, danced last weekend, not conditioned right now because of surgery so sometimes gets out of breath Socorro Arnold MD Attn: Accounting, [address] [facility], [place], [address], [place] 03/12/2024 12:57:56 03/20/2024 text/html Here for EKG for pre op clearance Socorro Arnold MD Attn: Accounting, [address] [facility], [place], [address], [facility] 04/14/2024 09:10:14 04/08/2024 text/html blood pressure 1 25, 70s, no chest pain, no palpitations, breathing fine, has therapy set up Sunday, has to set up mammogram, looking into place for mammogram, mother heart attack at [age], talked about scheduling surgery in June, Socorro Arnold MD Attn: Accounting, [address] [place], [address], [facility] 04/08/2024 12:34:43 05/13/2024 text/html here for follow up, was recently here for a vital sign check with phentermine, on noticed swelling and pain in her right forearm, it is aggravated by wrist movements, no known trauma, it is actually getting better, hurts when try to bend the wrist, no palpitations or chest pain, surgery in June, therapy helped back pain, mammogram today, Socorro Arnold MD Attn: Accounting, [address] [place], [address], [facility] 05/13/2024 18:23:33 OBGyn Episode Ob Episode Information Episode Created Date Number of Fetuses Patient Bloodtype Patient rh Status Prepregnancy Weight lbs Domestic Partner Domestic Partner Phone Father Name Pet Feeder Status 02/03/20 16 2 CLOSED Fetus Data First Name Last Name Admitted to NICU Weight (g) Sex Living Outcome Pediatric Complications Fetus ID Race Codes Race Delivery Type 2551.45 5 M Full Term [id number] Vaginal 2324.65 9 F Full Term [id number] Vaginal Chance Calculation Initial Chance Date Initial Exam Date Initial Exam Provider Initial Ultrasound Date Last Menstrual Period Date Ultra Sound Weeks Gestation 0 Eighteen To Twenty Week Chance Update Ultra Sound Date Fundal Height At Umbil Quickening Date Ultra Sound Latest Weeks Gestation Final Chance Confirmed By Final Chance Confirmed Date Final Chance Date Ultra Sound Latest Days Gestation 0 0 Menstrual History Last Menstrual Date Menses Monthly On Bcp Conception Prior Menses Frequency Hcg Plus Date Menarche Onset Age Delivery Information Delivery Date Delivery Type Labor Anesthesia Weeks Gestation Incision Type Labor Labor Length Hrs Delivered By Post Complications Tubal Sterilization Discharge Date Comments 9 37 Discharge Information Feeding Method Contraceptive Method Maternal HG B and HCT Levels Ob Episode Information Episode Created Date Number of Fetuses Patient Bloodtype Patient rh Status Prepregnancy Weight lbs Domestic Partner Domestic Partner Phone Father Name Pet Feeder Status 02/03/20 16 1 CLOSED Fetus Data First Name Last Name Admitted to NICU Weight (g) Sex Living Outcome Pediatric Complications Fetus ID Race Codes Race Delivery Type 3345.24 1 M Full Term [id number] Vaginal Chance Calculation Initial Chance Date Initial Exam Date Initial Exam Provider Initial Ultrasound Date Last Menstrual Period Date Ultra Sound Weeks Gestation 0 Eighteen To Twenty Week Chance Update Ultra Sound Date Fundal Height At Umbil Quickening Date Ultra Sound Latest Weeks Gestation Final Chance Confirmed By Final Chance Confirmed Date Final Chance Date Ultra Sound Latest Days Gestation 0 0 Menstrual History Last Menstrual Date Menses Monthly On Bcp Conception Prior Menses Frequency Hcg Plus Date Menarche Onset Age Delivery Information Delivery Date Delivery Type Labor Anesthesia Weeks Gestation Incision Type Labor Labor Length Hrs Delivered By Post Complications Tubal Sterilization Discharge Date Comments 2 40 Discharge Information Feeding Method Contraceptive Method Maternal HG B and HCT Levels
--- OUTSIDE RECORDS SUMMARY | 2024-07-10 15:07 | XMS_ITS | Continuity of Care Document ---
Author Organization [facility] Address [address] [place] [address] Phone Care Team Providers Care Underwriting Manager Name Role Phone Nigel Schaeffer MD Unavailable Unavailable Allergies, Adverse Reactions, Alerts Substance Reaction Status Criticality No Known Allergies Active No Inform ation Procedures Procedure Date OFFICE/OUTPATIENT VISIT NEW Advance Directives Directive Yes / No Effective Date File Name No Information Encounters Encounter Description Practice Location Reason(s) For Visit Diagnoses Date Provider Providers Copied on Encounter OFFICE/OUTPA TIENT VISIT [facility], [address], [place], [address], [place] tel:[phone] [facility] [place] Primary osteoarthritis of left knee Sep-2 8 Maksim Manning. [address], [place], [place], [id number] . tel: [phone] Referring Provider: Svitlana Castillo, [address] [place], [address] . tel:[phone] Family History Family Member Type Diagnosis Age At Onset No Information Payers Payer name Insurance type Covered libertarian ID Authoriza tiamy(s) ROSENDAP Medicare Complete HMO-POS [id number] [id number] Social History Type Description Quantity Date Captured Comments Alcohol Use Details Unknown Caffeine Use Details Unknown Tobacco Use Status Current non-smoker 18 Smoking Status Never smoker Non-Smoking Tobacco Use Details : No Details Available : No Details Available Sex Female Vital Signs Date / Time: Height Weight BMI Pulse Rate Blood Pressure Temperature Respiratory Rate Body Surface Area Head Circumference Head Circ. Percentile Wt./Ty. Percentile BMI percentile Pulse Ox Inhaled Ox 11:07 AM 61.00 in 96.615 kg (213.00 lbs) 40.2 5 kg/m eter (2) Chief Complaint And Reason For Visit No Information Reason For Referral Reason For Referral No Information History Of Present Illness Encounter Date Complaint History Of Prese nt Illness No Information Functional Status Date Functional Assessmen t No Information Instructions Date Instruction Additional Infor mation Activity as tolerated. Related t o Primary osteoarthritis of left knee Apply ice as instructed. Related to Primary osteoarthritis of left knee Assessments Type Assessment Date assessment Primary osteoarthritis of left k nee Patient Care Teams Name Effective Dates (start - stop) Status Members No Information
--- OUTSIDE RECORDS SUMMARY | 2024-07-10 15:07 | XMS_ITS | Referral Summary ---
Author Organization [facility] Address [address] [address] Care Team Providers Care Management Engineer Name Role Phone Brunilda Pope PA-C Primary Care Provider + Source Comments [facility],non-owned Affiliates and Associated Physician Practices is amultiple site organization consisting of ambulatory clinics and hospital sitesin [place], [place], [place] and [place]. This disclosure is being madepursuant to the Care Everywhere program and may not contain all information available regarding this patient. Last updated 18.[facility] Allergies No known active allergies Medications * Be aware that medications may not be up to date on this document. Alwaysverify current medications with the patient. Medication Sig Dispensed Refills Start Date End Date Status cyanocobalamin (VITAMIN B-12) 500 MCG tablet Take 1,000 mcg by mouth Active BIOTIN PO Active vitamin D, ergocalciferol, (DRISDOL) 1.25 MG (71778 UT) capsule TAKE 1 CAPSULES BY MOUTH EVERY WEEK DIRECTED FOR 28 DAYS 09/13/2020 Active simvastatin (ZOCOR) 40 MG tablet Take 40 mg by mouth once daily 08/17/2020 Active telmisartan-hydroCHLO ROthiazide (MICARDIS HCT) 80-25 MG 09/20/2020 Active Immunizations Name Administration Dates Next Due Cinthia Logue Transport primary monoval ent 12+ yr 0.3mL Purple [...] 10/07/2020 3:12 PM CDT Plan of Treatment Not on file Care Teams Management Engineer Relationship Specialty Start Date End Date Brunilda Pope PA-C [address] [place] [id number] PCP - General 10/07/20
--- OUTSIDE RECORDS SUMMARY | 2024-07-10 15:07 | XMS_ITS | Clinical Summary ---
Author Organization [facility] Address [address] [place] [address] Phone Care Team Providers Care Evaporator Operator Name Role Phone Brunilda Pope Primary Care Provider [phone] Allergies No known active allergies Medications ergocalciferol (VITAMIN D) 24668 UNIT Capsule TAKE 1 CAPSULES BY MOUTH EVERY WEEK DIRECTED FOR 28 DAYS 08/17/2020 Active simvastatin (ZOCOR) 40 MG Tablet Take 40 mg by mouth daily. 08/17/2020 Active Cyanocobalamin (VITAMIN B-12 PO) Take 1,000 mcg by mouth. Active BIOTIN PO Take by mouth. Active Telmisartan-HCT Z 80-25 MG Tablet Take 1 Tablet by mouth daily. Active Immunizations Immunization Administration Dates Next Due Covid-19, Mrna, Lnp-s, Pf, 30 Mcg/0.3 Ml Dose (Portillo vega) 09/12/2020 Family History Medical History Relation Name Comments Cancer Sister Relation Name Status Comments Sister Social History Tobacco Use Types Packs/Day Years Used Date Smoking Tobacco: Never Smokeless Tobacco: Never Alcohol Use Standard Drinks/Week Comments Never 0 (1 standard drink = 0.6 oz pur e alcohol) PHQ-2 Answer Date Recorded Total Score - Questions 1-9 0 0 10/2020 Comments No Sex and Gender Information Value Date Recorded Sex Assigned at Not on file Legal 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 Gender Identity Not on file Sexual Orientation Not on file Last Filed Vital Signs Vital Sign Reading Time Taken Comments Blood Pressure 132/80 09/20/2020 9:07 AM CDT Pulse 64 09/20/2020 9:07 AM CDT Temperature 36.3 ??C (97.4 ??F) 09/20/2020 9:07 AM CD T Respiratory Rate 18 09/20/2020 9:07 AM CDT Oxygen Saturation 96% 09/20/2020 9:07 AM CDT Inhaled Oxygen Concentration - - Weight 94.3 kg (208 lb) 09/20/2020 9:07 AM CDT Height 172.7 cm (5' 8 ) 09/20/2020 9:07 AM CDT Body Mass Index 31.63 09/20/2020 9:07 AM CDT Plan of Treatment Health Maintenance Due Date Last Done Comments DEXA Bone Density 1950 Hepatitis C Virus (HCV) Screening 1950 TdaP Immunization 1950 Colonoscopy 02/18/1997 Colorectal Cancer Screening 02/18/1997 Cologuard 02/18/2002 Immunochemical Fecal Occult Blood 02/18/2002 Mammogram 02/18/2002 Pneumococcal Immunization (5 0+ years) (1 of 1 - PCV) 02/18/2002 Zoster Immunization (1 of 2) 02/18/2002 Influenza Immunization (#1) 2024 SARS-COV-2 Immunization ( season) 2024 05/21/2021, 10/03/2020, 09/12/2020 Respiratory Syncytial Virus (RSV) Immunization (Adult) (1 - 1-dose 75+ series) 02/18/2027 Hepatitis B Immunization Aged Out No longer eligible based on patient's age to complete this topic Meningococcal Immunization (ACWY) Aged Out No longer eligible b ased on patient's age to complete this topic Rotavirus Immunization Aged Out No lo nger eligible based on patient's age to complete this topic Insurance [facility]ICARE [facility] Care Teams Evaporator Operator Relationship Specialty Start Date End Date Brunilda Pope, [address] [place] [address] PCP - General Physician Otr Flatbed Driver 08/18/20
== END 2024-07-09 16:24 | disposition home health service (06) ==
LOC: ANHSURGERY 05:48 → ANH3MEDSUR 11:31
PROVIDERS: PCP Emergency Medicine; Visit Provider Orthopaedic Surgery
PROC: (CPT 27447; principal; 2024-07-08 07:30)
DX: M17.0 Bilateral primary osteoarthritis of knee (principal); I10 Essential (primary) hypertension; G89.18 Other acute postprocedural pain; E66.9 Obesity, unspecified; Z68.38 Body mass index [BMI] 38.0-38.9, adult; Z98.890 Other specified postprocedural states; Z90.49 Acquired absence of other specified parts of digestive tract; Z82.49 Family history of ischemic heart disease and other diseases of the circulatory system
CPT/HCPCS: 64447; 27447; 36415; 73560; 80048; 80307; 81001; 82040; 83036; 85025; 85610; 85730; 86850; 86900; 86901; 87086; 87641; 93005; 97110; 97116; 97161; 97165; 97530; 97535; A9270; C1713; C1776; J0171; J0690; J1741; J1885; J2003; J2250; J2270; J2405; J2704; J2795; J3010; J7030; J7120

== ENCOUNTER 2025-04-16 10:14 | Outpatient (CLI) | payer MEDICARE, SELFPAY ==
--- NOTE | ~2025-04-16 | DEXA_ITS ---
Bone Density Report Name: LANA CLARK Age: 75 Sex: Female Ethnicity: Black Date of : 1950 Indication: postmenopausal; screening for osteoporosis; Referring Provider: CHIKI, SHANA Ovalle Study: Bone densitometry was performed. Exam Date: April 16, 2025 Accession number: [id number] Bone Density: Region BMD T-score Z-score Classification AP Spine(L1-L4) 0.979 -0.6 1.0 Normal Femoral Neck (Left) 0.628 -2.0 -0.8 Osteopenia Total Hip (Left) 0.903 -0.3 0.4 Normal Femoral Neck (Right) 0.690 -1.4 -0.3 Osteopenia Total Hip (Right) 0.901 -0.3 0.4 Normal Total Hip Mean 0.902 -0.3 0.4 Normal World Health Organization criteria for BMD impression classify patients as: Normal (T-score at or above -1.0), Osteopenia (T-score between -1.0 and -2.5), or Osteoporosis (T-score at or below -2.5). 10-year Fracture Risk(1): Major Osteoporotic Fracture 4.8% Hip Fracture 0.9% Reported Risk Factors: [place] ([place]), Neck BMD=0.628, BMI=41.7 (1) FRAX(R) Version 3.08. Fracture probability calculated for an untreated patient. Fracture probability may be lower if the patient has received treatment. Clinical Information Provided by Patient: Has used the following medications: Vitamin D Patient maximum height was 61 Menopause Age: 47 No regular weight bearing exercise Drinks caffeinated beverages Onset of menses at age 13 Number of children 2 Impression: The patient has low bone mass, based on the Left Femoral Neck T-score. The patient has an estimated ten-year risk of hip fracture of 0.9% and an estimated ten-year risk of major fracture of 4.8%, based on the WHO FRAX algorithm. Discussion: BONE DENSITY IS LOW AT ONE OR MORE SKELETAL SITES. This patient's lowest T-score is low at one or more skeletal sites. It meets the World Health Organization's (WHO) criteria for ?low bone mass? (T-score between -1.0 and -2.5). The patient's 10-year risk of fracture as calculated by FRAX is less than the threshold where pharmacological therapy is recommended by the National Osteoporosis Foundation (NOF). However, all treatment decisions require clinical judgment and consideration of individual patient factors, including patient preferences, comorbidities, previous drug use, risk factors not captured in the FRAX model (e.g., frailty, falls, vitamin D deficiency, increased bone turnover, interval significant decline in bone density) and possible under or overestimation of fracture risk by FRAX. The patient should follow a healthful lifestyle (good nutrition with adequate calcium and vitamin D, and appropriate weight-bearing exercise). Follow-Up: Consider repeating this study in 2 to 3 years to reassess this patient's status, or sooner if there is some new clinical indication. Reported by: MYLA on 04/16/2025 2:20:00 PM. Reviewed, dictated and finalized at location A.
== END 2025-04-16 10:15 | disposition home or self-care (01) ==
LOC: MICIMG 10:15
PROVIDERS: PCP Emergency Medicine; Visit Provider Emergency Medicine
DX: M85.89 Other specified disorders of bone density and structure, multiple sites (principal); Z78.0 Asymptomatic menopausal state; Z13.820 Encounter for screening for osteoporosis
CPT/HCPCS: 77080